=== PATIENT | male | born 1970 | race Native Hawaiian/Other Pacific Islander ===

== ENCOUNTER 2020-06-18 14:56 | Outpatient (CLI) | payer OTHER, BC, SELFPAY ==
--- NOTE | ~2020-06-18 | XR_ITS ---
EXAMINATION: XR knee LT 3V, XR knee RT 3V DATE: 06/18/2020 15:38 INDICATION: Rheumatoid arthritis and gout TECHNIQUE: 1. Weight bearing anteroposterior and Maradiaga and flexed lateral views of the left knee were obtain ed. 2. Weight bearing anteroposterior and Maradiaga and flexed lateral views of the right knee were obtai linda COMPARISON: None. FINDINGS: Alignment is normal at both knees. No fracture. No joint effusion/layering lipohemarthrosis. Joint s paces are relatively preserved but with tiny marginal osteophytes in the medial and lateral compartme nts of both knees consistent with minimal osteoarthritis. Mild osteoarthritis at the bilateral patell ofemoral compartments with mild joint space narrowing, left greater than right, small marginal osteop hytes along the bilateral patellae and suggestion of a possible central osteophyte along the right tr ochlear groove. Enthesophytes along the bilateral patellae, right anterior tibial tuberosity and tello g the syndesmotic insertions of the proximal bilateral tibial and femoral diaphyses. No cortical eros ions to suggest an inflammatory arthritis. Soft tissues are unremarkable. IMPRESSION: 1. Bilateral mild patellofemoral predominant tricompartmental osteoarthritis. Reviewed, dictated and finalized at location H. UTER SCIENCE TEACHER IMPRESSION: 1. Bilateral mild patellofemoral predominant tricompartmental osteoarthritis.
--- NOTE | ~2020-06-18 | XR_ITS ---
EXAMINATION: HAND-DAVE ARTHRITIS 3+VIEWS DATE: 06/18/2020 15:38 INDICATION: Gout and rheumatoid arthritis TECHNIQUE: Posteroanterior, lateral, and oblique views of the left and of the right hands as well as a ballcatchers view of both hands were obtained. COMPARISON: None. FINDINGS: Alignment is normal. 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 No other fractures ident ified. Polyarticular osteoarthritis with typical distribution in both hands, moderate severity at the left fifth proximal interphalangeal joint which may be secondary to prior trauma with small heteroto pic ossicle in the region of the ulnar collateral ligament. Mild osteoarthritis at the bilateral dist al radioulnar, bilateral first carpometacarpal and multiple bilateral interphalangeal joints. No eros ions or significant joint space narrowing inflammatory arthritis or specifically rheumatoid. IMPRESSION: 1. Generally mild polyarticular osteoarthritis at the bilateral hands and wrists with slightly more s evere moderate osteoarthritis at the left fifth proximal interphalangeal joint which may be secondary to prior trauma. 2. No erosions to suggest an inflammatory arthritis such as rheumatoid. 3. 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 Reviewed, dictated and finalized at location H. URCE MANAGEMENT PLANNER IMPRESSION: 1. Generally mild polyarticular osteoarthritis at the bilateral hands and wrist s with slightly more severe moderate osteoarthritis at the left fifth proximal interphalangeal joint which may be secondary to prior trauma. 2. No erosions to suggest an inflammatory arthritis such as rheumatoid. 3. 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
--- NOTE | ~2020-06-18 | XR_ITS ---
EXAMINATION: XR foot LT standing 2V, XR foot RT standing 2V DATE: 06/18/2020 15:39 INDICATION: Rheumatoid arthritis and gout. TECHNIQUE: 1. Standing dorsal plantar and lateral views of the right foot were obtained. 2. Standing dorsal plantar and lateral views of the left foot were obtained. COMPARISON: None. FINDINGS: Alignment is normal at both feet. Symmetric normal variant type II accessory os naviculare. No fractu res. Polyarticular osteoarthritis, moderate at the left and mild at the right first metatarsophalange al joints and mild at multiple additional bilateral tarsometatarsal and interphalangeal joints. Mild hypertrophic change at the medial aspect of the heads of the bilateral first metatarsals likely relat ed to bunions. There is prominent juxta articular erosion with sclerotic margins and overhanging olga ical margin at the lateral head of the left first metatarsal with appearance most consistent with gou t. No other erosions identified at either foot. Large bilateral Achilles calcaneal spurs. IMPRESSION: 1. Prominent erosion at the lateral head of the left first metatarsal with location, appearance and a bsence of other findings of inflammatory arthritis which would favor gout with differential including less likely rheumatoid arthritis or other inflammatory arthritis. 2. Moderate osteoarthritis at the left first metatarsophalangeal joint and mild patellar articular os teoarthritis at multiple additional joints in the bilateral mid and forefeet. Reviewed, dictated and finalized at location H. TICAL SCIENCE RESEARCH ASSISTANT IMPRESSION: 1. Prominent erosion at the lateral head of the left first metatarsal with loca tion, appearance and absence of other findings of inflammatory arthritis which would favor gout with differential including less likely rheumatoid arthritis o r other inflammatory arthritis. 2. Moderate osteoarthritis at the left first metatarsophalangeal joint and mild patellar articular osteoarthritis at multiple additional joints in the bilater al mid and forefeet.
== END 2020-06-18 14:57 | disposition home or self-care (01) ==
PROVIDERS: PCP Student in an Organized Health Care Education/Training Program; Visit Provider Internal Medicine
DX: M19.042 Primary osteoarthritis, left hand (principal); M19.041 Primary osteoarthritis, right hand; E55.9 Vitamin D deficiency, unspecified; M10.9 Gout, unspecified; M17.0 Bilateral primary osteoarthritis of knee; M84.43 Pathological fracture, ulna and radius; M19.072 Primary osteoarthritis, left ankle and foot; M19.071 Primary osteoarthritis, right ankle and foot
CPT/HCPCS: 73130; 73562; 73620

== ENCOUNTER → 2022-05-29 14:45 | Outpatient (CLI) | payer BC, SELFPAY ==
--- NOTE | ~2022-05-29 | CT_ITS ---
EXAMINATION: CT abdomen pelvis w con DATE: 05/29/2022 15:19 INDICATION: Chronic left lower quadrant abdominal pain, discomfort for 2 to 3 years TECHNIQUE: Computed tomography (CT) of the abdomen and pelvis was performed with 100 CC Omnipaque 350 intravenous contrast. Automated exposure control and iterative reconstruction technique were employe d. Exam dose: 1211.78 mGy-cm total exam DLP. COMPARISON: None. FINDINGS: The lung bases are clear. No pericardial or pleural effusion. The liver, gallbladder, bile ducts, pancreas, pancreatic duct, spleen, adrenal glands and kidneys salvador ear normal. Normal caliber of the abdominal aorta. No intraperitoneal or retroperitoneal or pelvic mass lesion or adenopathy or ascites. Normal appendix. No bowel obstruction, bowel wall thickening, pneumatosis or intraperitoneal free air . Mild diffuse thickening of the urinary bladder wall may be due to underdistention. The prostate gland is unremarkable. No suspicious osteolytic or osteoblastic lesions. IMPRESSION: No significant abnormality Reviewed, dictated and finalized at Location A. Reviewed, dictated and finalized at location A. IMPRESSION: No significant abnormality
[2022-05-29 15:06] LABS: Estimated Glomerular Filt Rate 54
== END ==
PROVIDERS: PCP Student in an Organized Health Care Education/Training Program; Visit Provider Student in an Organized Health Care Education/Training Program
DX: Z00.00 Encounter for general adult medical examination without abnormal findings (principal); R10.32 Left lower quadrant pain; G89.29 Other chronic pain
CPT/HCPCS: 74177; Q9967

== ENCOUNTER 2024-08-27 10:00 | Emergency (ER) | payer OTHER, BC, SELFPAY ==
--- NOTE | ~2024-08-27 | XR_ITS ---
XR chest 2V 08/27/2024 11:33 Indication: Upper respiratory infection and cough. Procedure: 2 view chest Comparison: 08/13/2014 Findings: There is a infiltrates of the right mid and lower lung. Heart size normal. Pacemaker leads are in expected position. No significant effusion, edema or pneumothorax. No acute osseous abnormalit y. Impression: 1: Subtle patchy right sided infiltrates which may represent atelectasis or developing pneumonia. Reviewed, dictated and finalized at location A. BLACKER Impression: 1: Subtle patchy right sided infiltrates which may represent atelectasis or dev eloping pneumonia.
[2024-08-27 10:05] VITALS: BP 146/97; PULSE 87; RESP 18; TEMP 36.7; O2SAT 95
--- OUTSIDE RECORDS SUMMARY | 2024-08-27 10:47 | XMS_ITS | Referral Summary ---
Author Organization [facility] Address [address] [place] [address] Care Team Providers Care Used Car Lot Attendant Name Role Phone Georgia Garcia MD Primary Care Provider Unavailabl e Source Comments [facility],non-owned Affiliates and Associated Physician Practices is amultiple site organization consisting of ambulatory clinics and hospital sitesin [place], [place], [place] and [place]. This disclosure is being madepursuant to the Care Everywhere program and may not contain all information available regarding this patient. Last updated 18.[facility] [employer] Social History Tobacco Use Types Packs/Day Years Used Date Smoking Tobacco: Never Assessed Sex and Gender Information Value Date Recorded Sex Assigned at Not on file Gender Identity Not on file Sexual Orientation Not on file Plan of Treatment Not on file Care Teams Used Car Lot Attendant Relationship Specialty Start Date End Date Georgia Garcia MD RETIRED PCP - General 02/15/10
--- OUTSIDE RECORDS SUMMARY | 2024-08-27 10:47 | XMS_ITS | Encounter Summary ---
Author Organization [facility] Address [facility] [facility] [place], [place] [id number] [place] [id number] Care Team Providers Care Tripe Scraper Name Role Phone Danilo Kemp DO Primary Care Provider + Reason for Visit * Reason Onset Date Comments Information 08/27/2024 Encounter Details Date Type Department Care Team (Late st Contact Info) Description 08/27/2024 Telephone [facility] Family & Internal Medicine [id number] [place] [id number] Danilo Kemp DO [facility] [place] [address] Information Social History Tobacco Use Types Packs/Day Years Used Date Smoking Tobacco: Never Passive Smoke Exposure: Never Smokeless Tobacco: Never Alcohol Use Standard Drinks/Week Comments Yes 10 (1 standard drink = 0.6 oz pu re alcohol) per week AUDIT-C Answer Date Recorded Frequency of Alcohol Consumption 2-3 times a wee k 04/08/2019 Average Number of Drinks Not on file 019 Frequency of Binge Drinking Not on file 03/30 PHQ-2 Answer Date Recorded Patient Health Questionnaire-2 Score 0 08/22/2024 Sex and Gender Information Value Date Recorded Sex Assigned at Male 08/22/2024 2:21 PM MACHINE BENDER Legal Sex Male 4:03 PM CDT Gender Identity Male 05/18/2022 11:46 AM CDT Sexual Orientation Not on file Occupation Industry Job Start Date Job End Date Not on file Not on file Not on file Not on file documented as of this encounter Progress Notes * Yuridia Mendoza - 08/27/2024 8:54 AM CST Patients called and stated that the patient has now developed a high pitched cough that is really bad. Wanted to know if we could test the patient for Whooping Cough. I was advised by the MA that he would need to go to the ER to make sure he does not have pneumonia and can also have a viral panel performed. Patients agreed and will take him to the ER. INE BENDER documented in this encounter Plan of Treatment Upcoming Encounters Date Type Department Care Team (Late st Contact Info) Description 09/18/2024 1:40 PM MACHINE BENDER Office Visit [facility] Multispecialty Care - [facility] [address] [place] [phone] Crystal Diamond, SHELLFISH MANAGER [address] [address] [place] [address] Harjit Lewis PA-C [address] [facility] [address] [place] [address] documented as of this encounter Visit Diagnoses Not on filedocumented in this encounter Additional Health Concerns Infection Onset Date Last Indicated Resolved Time Influenza - Seasonal 08/22/2024 08/22/2024 Assessment Noted Time PHQ-9 Depression Total Score: 0 04/23/20 20 11:17 AM CDT documented as of this encounter Care Teams Tripe Scraper Relationship Specialty Start Date End Date Danilo Kemp DO [address] [place] [address] PCP - General FAMILY PRACTICE 03/25/19 documented as of this encounter
--- OUTSIDE RECORDS SUMMARY | 2024-08-27 10:47 | XMS_ITS | Clinical Summary ---
Author Organization [facility] Address [address] [place] [address] [place] [address] Care Team Providers Care Core Java Engineer Name Role Phone Danilo Kemp DO Primary Care Provider + Allergies No known active allergies Medications apixaban (ELIQUIS) 5 MG tablet Take 1 tablet (5 mg total) by mouth 2 (two) times daily. 60 tablet 3 02/17/20 23 Active dapagliflozin (FARXIGA) 10 MG tablet Take 1 tablet (10 mg total) by mouth daily. 05/28/20 23 Active sacubitril-vals noemi (ENTRESTO) 24-26 MG tablet Take 1 tablet by mouth 2 (two) times daily. 07/19/20 23 Active vitamin D3 (CHOLECALCIFERO L) 1.25 mg capsuleIndicati ons:Vitamin D deficiency take 1 capsule by mouth once a week 12 capsule 01/17/20 24 Active colchicine 0.6 MG tabletIndicatio ns:Articular gout Take 1 tablet (0.6 mg total) by mouth daily. 90 tablet 1 02/27/20 24 Active pantoprazole EC (PROTONIX) 20 MG tabletIndicatio ns:Other gastritis without hemorrhage, unspecified chronicity TAKE 1 TABLET BY MOUTH EVERY DAY 90 tablet 07/31/19 25 Active metoprolol succinate ER (TOPROL-XL) 50 MG 24 hr tablet Take 2 tablets (100 mg total) by mouth daily. 05/26/20 24 2024 Active allopurinol (ZYLOPRIM) 300 MG tablet Take 2 tablets (600 mg total) by mouth daily. 03/13/20 24 2024 Active sildenafil (VIAGRA) 100 MG tablet Take 1 tablet (100 mg total) by mouth daily as needed for Erectile Dysfunction. 10/15/19 24 Active predniSONE (DELTASONE) 20 MG tabletIndicatio ns:Influenza A Take 3 tablets for three days, then take 2 tablets for three days, then take 1 tablet for three days 18 tablet 08/22/19 25 Active oseltamivir (TAMIFLU) 75 MG capsuleIndicati ons:Influenza A Take 1 capsule (75 mg total) by mouth 2 (two) times daily for 5 days. 10 capsule 08/22/19 25 2024 Active albuterol sulfate HFA (PROAIR HFA) 108 (90 Base) MCG/ACT inhalerIndicati ons:Influenza A,Acute cough,Wheezing Inhale 2 puffs into the lungs every 6 (six) hours as needed for Wheezing. 18 g 08/25/19 25 Active liraglutide, Weight Management, (SAXENDA) 18 MG/3ML injectionIndica tions:BMI 39.0-39.9,adult ,Persistent atrial fibrillation ([facility] HHS/HCC),YUDY (obstructive sleep apnea),Chronic HFrEF (heart failure with reduced ejection fraction) ([facility] HHS/HCC) Start With: 0.6 mg (0.1 mL) SC once daily x7 days, then 1.2 mg (0.2 mL) SC once daily x7 days, then 1.8 mg (0.3 mL) SC once daily x 7 days, then 2.4 mg (0.4 mL) SC once daily x 7 days, then 3 mg (0.5 mL) SC once daily. 5 pen. 2 10/08/19 24 2024 Discontinued allopurinol (ZYLOPRIM) 300 MG tabletIndicatio ns:Articular gout Take 1 tablet (300 mg total) by mouth daily. 90 tablet 02/27/20 24 2024 Discontinued methylPREDNISol one, BOZENA, (MEDROL DOSEPAK) 4 MG tabletIndicatio ns:Articular gout 6 TABLETS ON DAY ONE, 5 TABLETS DAY TWO, 4 TABLETS DAY THREE, 3 TABLETS DAY FOUR, 2 TABLETS DAY FIVE, AND 1 TABLET DAY SIX 1 each 02/28/20 24 2024 Discontinued metoprolol succinate ER (TOPROL-XL) 25 MG 24 hr tabletIndicatio ns:Benign hypertension TAKE 1 TABLET BY MOUTH DAILY (CALL TO MAKE AN APPOINTMENT) 90 tablet 03/27/20 24 2024 Discontinued(F ormulary change) pantoprazole EC (PROTONIX) 20 MG tabletIndicatio ns:Other gastritis without hemorrhage, unspecified chronicity Take 1 tablet (20 mg total) by mouth daily. 30 tablet 2 05/05/20 24 2024 Discontinued hydroxychloroqu ine (PLAQUENIL) 200 MG tabletIndicatio ns:Articular gout take 1 tablet by mouth daily 90 tablet 05/19/20 24 2024 Discontinued allopurinol (ZYLOPRIM) 100 MG tabletIndicatio ns:Articular gout TAKE 1 TABLET BY MOUTH DAILY WITH 300 MG TABLET TO EQUAL 400 MG DAILY DOSE 90 tablet 05/21/20 24 2024 Discontinued(F ormulary change) allopurinol (ZYLOPRIM) 300 MG tabletIndicatio ns:Articular gout TAKE 1 TABLET (300 MG TOTAL) BY MOUTH DAILY. TAKE WITH 100 MG TABLET TO EQUAL 400 MG ONCE DAILY. APPOINTMENT NEEDED PLEASE CALL OFFICE. 30 tablet 08/13/19 25 2024 Discontinued(F ormulary change) albuterol sulfate HFA 108 (90 Base) MCG/ACT inhalerIndicati ons:Influenza A,Wheezing Inhale 2 puffs into the lungs every 6 (six) hours as needed. 18 g 08/22/19 25 2024 Discontinued(C ost of medication) Active Problems Problem Noted Date Diagnosed Date Esophagitis 04/27/2024 Gastritis 04/27/2024 Idiopathic hypersomnia with long sleep time 11/2023 Callus of foot 10/05/2022 Chronic fatigue 06/18/2020 H/O cardiomyopathy 06/18/2020 Left lower quadrant abdominal pain 05/13/2020 Overview (05/13/2020): Added automatically from request for surgery [id number] Abdominal fullness 09/06/2018 Impotence of organic origin 09/01/2016 Overview (11/18/2020): Overview: Erectile dysfunction, unspecified erectile dysfunction type Erectile dysfunction, unspecified erectile dysfunction type Cardiomyopathy ([facility]) 09/17/2015 Overview (11/18/2020): Overview: Cardiomyopathy Cardiomyopathy Obesity with body mass index 30 or greater 09/17 Overview (11/18/2020): Overview: Obesity, Class II, BMI 35.0-39.9, with comorbidity (see actual BMI) Overview: Obesity (BMI 35.0-39.9 without comorbidity) Obesity, Class II, BMI 35.0-39.9, with comorbidity (see actual BMI) Obesity (BMI 35.0-39.9 without comorbidity) Dizziness 09/17/2015 Overview (11/18/2020): Dizziness Articular gout 07/21/2015 Overview (11/18/2020): Overview: Gouty arthritis Gouty arthritis Chronic HFrEF (heart failure with reduced ejection fraction) ([facility]) 07/21/2015 Overview (11/18/2020): Overview: Chronic systolic heart failure Chronic systolic heart failure Obstructive sleep apnea syndrome 07/21/2015 Overview (11/18/2020): Overview: YUDY on CPAP YUDY on CPAP Unknown and unspecified causes of morbidity 03/30 Overview (11/18/2020): Chronic anticoagulation Benign hypertension 02/04/2014 Overview (11/18/2020): Overview: HTN (hypertension), benign Overview: HTN (hypertension) HTN (hypertension), benign HTN (hypertension) Prediabetes 02/04/2014 Overview (03/25/2019): Overview: DM (diabetes mellitus) Persistent atrial fibrillation ([facility]) 02/04/2014 Overview (11/18/2020): Overview: Paroxysmal atrial fibrillation Overview: Persistent atrial fibrillation Overview: Atrial fibrillation Paroxysmal atrial fibrillation Persistent atrial fibrillation Atrial fibrillation Shortness of breath 02/04/2014 Overview (11/18/2020): Dyspnea Resolved Problems Problem Noted Date Diagnosed Date Resolved Date Implantable cardioverter-def ibrillator (ICD) in situ 06/03/2024 08/22/2024 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 10/21/19 23 Overview (11/18/2020): Amiodarone toxicity, undetermined intent, initial encounter Encounters Date Type Department Care Team Description 08/27/2024 Telephone [facility] [address] [phone] Danilo Kemp, DO Information 08/22/2024 2:20 PM [employer] NURSE Office Visit [facility] [address] [phone] Danilo Kemp, DO URI (Chills, cough, body aches, and wheezing for 5 days. ) 08/22/2024 Telephone [facility] [address] [address] Danilo Kemp, DO Prior Authorization (Albuterol sulfate HFA 108 (90 base) mcg/act inhaler) 08/22/2024 Travel 06/29/2024 Scan [facility] Scanned, [facility] from Last 3 Months Family History Medical History Relation Comments gout Brother Gout Father Hypertension Father Hypertension Mother Relation Status Comments Brother Father Maternal Grandfather Maternal Grandmother Mother Paternal Grandfather Paternal Grandmother Social History Tobacco Use Types Packs/Day Years [...] Sex Assigned at Male 08/22/2024 2:21 PM [employer] NURSE Legal Sex Male 4:03 PM CDT Gender Identity Male 05/18/2022 11:46 AM CDT Sexual Orientation Not on file Occupation Industry Job Start Date Job End Date Not on file Not on file Not on file Not on file Last Filed Vital Signs Vital Sign Reading Time Taken Comments Blood Pressure 112/80 08/22/2024 2:22 PM [employer] NURSE Pulse 87 08/22/2024 2:22 PM [employer] NURSE Temperature 36.1 ??C (97 ??F) 08/22/2024 2:22 PM [employer] NURSE Respiratory Rate 18 08/22/2024 2:22 PM [employer] NURSE Oxygen Saturation 96% 08/22/2024 2:22 PM [employer] NURSE Inhaled Oxygen Concentration - - Weight 139.1 kg (306 lb 11.2 oz) 08/22/2024 2:22 PM [employer] NURSE Height 190.5 cm (6' 3 ) 08/22/2024 2:22 PM [employer] NURSE Body Mass Index 38.33 08/22/2024 2:22 PM [employer] NURSE Plan of Treatment Upcoming Encounters Date Type Department Care Team (Late st Contact Info) Description 09/18/2024 1:40 PM [facility] NURSE Office Visit [facility] - [address] [place] [address] Crystal Diamond, CYCLING INSTRUCTOR [address] [place] [address] Harjit Lewis, PAAdiC [address] [place] [address] Health Maintenance Due Date Last Done Comments Annual Physical 12/24/1975 Hepatitis B Vaccines (1 of 3 - 19+ 3-dose series) 09/22/2024 Postponed from 11/28 (Future Appointment) DTaP, Tdap and Td Vaccines ( 1 - Tdap) 10/04/2024 Postponed from 12/23 (Patient Refused) Pneumococcal Vaccine: Pediatrics (0 to 5 Years) and At-Risk Patients (6 to 64 Years) (1 of 2 - PCV) 08/21/2025 Postponed from (Patient Refused) COVID-19 Vaccine (4 - 2023-2 5 season) 2025 10/17/2021, 11/19/2020, 10/26/2020 Postponed from 03/30/2024 (Patient Refused) Influenza Adult (#1) 2025 Postpon ed from 04/29/2024 (Patient Refused) Zoster Vaccines (1 of 2) 08/22/2025 Pos tponed from 2022 (Patient Refused) Colorectal Cancer Screening Colonoscopy (10 Years) 07/17/2029 07/17/2019, 07/17/2019 Hepatitis C Completed 05/23/2022 PHQ-2 (Physician [place]) Completed 08/22/2024 Meningococcal B Vaccine Aged Out No l onger eligible based on patient's age to complete this topic Meningococcal Vaccine Aged Out No roula vignesh eligible based on patient's age to complete this topic RSV Immunizations Under 20 Months Aged Out No longer eligible b ased on patient's age to complete this topic Procedures Procedure Name Priority Date/Time Associated Diagnosis Comments XR CHEST PA+LAT STAT 08/22/2024 3:10 PM [employer] NURSE Influenza A CORONAVIRUS (COVID-19) INFLUENZA A & B ANTIGEN IA PANEL Routine 08/22/2024 Acute cough HEPATITIS C ANTIBODY W/RFX TO HCV RNA Routine 05/23/2022 3:32 PM CDT Need for hepatitis C screening test Annual physical exam COLONOSCOPY Routine 07/17/2019 10:51 AM [employer] NURSE from Last 3 Months or Most Recently Relevant to Health Maintenance Results * XR CHEST PA+LAT (08/22/2024 3:10 PM [employer] NURSE) Anatomical Region Laterality Modality Chest Radiographic Carmen ging 08/22/2024 2:58 PM [employer] NURSE Narrative 08/22/2024 3:15 PM [employer] NURSE [facility] - [address] ??[id number] EXAM: XR CHEST PA+LAT INDICATION: Shortness of breath with influenza A. TECHNIQUE: PA and lateral views of the chest were obtained. COMPARISON EXAM: Portable chest from 06/25/2019. ??CT chest from 12/29/2022. FINDINGS: There is no consolidation or effusion. ??Mild bilateral interstitial prominence from probable chronic bronchitis. ??Size and pulmonary vascular caliber is normal. ??There is been placement of a dual lead cardiac pacemaking device in satisfactory position. ??Skeletal structures are intact. IMPRESSION: NO ACUTE CONSOLIDATION OR EFFUSION. ??PROBABLE SEQUELA OF CHRONIC BRONCHITIS. Referred By: ?? Interpreted By: Juan Luis Sheikh MD, 08/22/2024 3:11 PM Procedure Note Juan Luis Sheikh MD - 08/22/2024 [facility] - [address] [address] EXAM: XR CHEST PA+LAT INDICATION: Shortness of breath with influenza A. TECHNIQUE: PA and lateral views of the chest were obtained. COMPARISON EXAM: Portable chest from 06/25/2019. CT chest from12/29/2022. FINDINGS: There is no consolidation or effusion. Mild bilateralinterstitial prominence from probable chronic bronchitis. Size andpulmonary vascular caliber is normal. There is been placement of a duallead cardiac pacemaking device in satisfactory position. Skeletalstructures are intact. IMPRESSION: NO ACUTE CONSOLIDATION OR EFFUSION. PROBABLE SEQUELA OFCHRONIC BRONCHITIS. Referred By: Interpreted By: Juan Luis Sheikh MD, 08/22/2024 3:11 PM Danilo Navarro Lucjamal DO GENERAL IMAGING Final Re sult * (ABNORMAL) CORONAVIRUS (COVID-19) INFLUENZA A & B ANTIGEN IA PANEL (08/22/2024) [facility] CORONAVIRUS ANTIGEN IA NEGATIVE NEGATIVE [facility] INFLUENZA A POSITIVE(A) NEGATIVE [facility] INFLUENZA B NEGATIVE NEGATIVE [facility] Internal Control: VALID VALID [facility] NASAL STRUCTURE / Unknown 08/22/2024 Danilo Kemp DO MICROBIOLOGY - GENERAL O RDERABLES Final Result [facility] [address] [place] [address], * HEPATITIS C ANTIBODY W/RFX TO HCV RNA ([facility] ONLY) (05/23/2022 3:32 PM CDT) Pathologist [facility] HEPATITIS C AB <0.1 0.0 - 0.9 s/co ratio [facility] 1 INTERPRETATION Comment [facility] 1 Comment: Negative Not infected with HCV, unless recent infection is suspected or other evidence exists to indicate HCV infection. 05/23/2022 3:32 PM CDT 05/23/2022 Narrative [facility] - 05/24/2022 12:09 PM CDT Performed at: ??01 - [facility] [address], [place], [place] ??[id number] Events Intern: Matthew Urias PhD, Phone: ??[phone] Danilo Kemp DO LABORATORY Final Re sult [facility] [address] [place] [address] [facility] 1 from Last 3 Months or Most Recently Relevant to Health Maintenance Additional Health Concerns Infection Onset Date Last Indicated Influenza - Seasonal 08/22/2024 08/22/2024 Insurance [facility] Care Teams Core Java Engineer Relationship Specialty Start Date End Date Danilo Kemp DO [address] [place] [id number] PCP - General FAMILY PRACTICE 03/25/19
--- OUTSIDE RECORDS SUMMARY | 2024-08-27 10:47 | XMS_ITS | Referral Summary ---
Author Organization [facility] Address [address] [place] [address] Care Team Providers Care Yield Engineer Name Role Phone Danilo Kemp Primary Care Provide r Onel Alvarez MD Unavailable [phone] Encounters Date Type Department Care Team Description 07/11/2024 9:15 AM DRAWSTRING KNOTTER Office Visit [facility] Sleep Medicine at [address] [place] [phone] Halle Jackson MD Obstructive sleep apnea (Primary Dx); Hypersomnia; Obesity, unspecified class, unspecified obesity type, unspecified whether serious comorbidity present 07/10/2024 Telephone [facility] Rheumatology [address] [place] [address] Medicine 5th [place] [address] [place] [address] Estela Frye RMA Test Results (Labs) 07/09/2024 8:20 PM DRAWSTRING KNOTTER - 07/09/2024 11:59 PM DRAWSTRING KNOTTER Hospital Encounter [facility] [address] [place] [address] Idiopathic chronic gout of multiple sites with tophus Discharge Disposition: Discharge to home or self care 07/09/2024 3:40 PM DRAWSTRING KNOTTER Lab [facility] Infectious Diseases [address] [place] [address] [address] [place] [address] 07/09/2024 3:00 PM DRAWSTRING KNOTTER Office Visit [facility] Rheumatology [address] [place] [address] [address] [place] [address] Beatrice Almaraz MD Idiopathic chronic gout of multiple sites with tophus (Primary Dx); Arthralgia of both hands 06/02/2024 1:00 PM DRAWSTRING KNOTTER Office Visit [facility] Cardiology [address] [facility] [address] [place] [address] Onel Alvarez MD Chronic HFrEF (heart failure with reduced ejection fraction) (CMS/HCC) (HCC) (Primary Dx); Longstanding persistent atrial fibrillation (CMS/HCC) (HCC); Cardiomyopathy, unspecified type (HCC) 05/28/2024 3:15 PM CDT [facility] [address] [place] [phone] Anna Christianson NP Longstanding persistent atrial fibrillation (CMS/HCC) (HCC) (Primary Dx); Automatic implantable cardiac defibrillator in situ; Anticoagulation management encounter 05/28/2024 3:00 PM CDT Ancillary Procedure [facility] [address] [place] [phone] Automatic implantable cardiac defibrillator in situ (Primary Dx); Nonischemic cardiomyopathy (CMS/HCC) (HCC) from Last 3 Months Allergies No known active allergies Medications ergocalciferol (VITAMIN D) 50,000 unit capsule Take 1 capsule (50,000 Units total) by mouth once a week 1 Active apixaban (ELIQUIS) 5 mg tablet Take 1 tablet (5 mg total) by mouth 2 (two) times a day 180 tablet 3 3 Active Additional Information Patient taking differently:5 mg oral 2 times daily,Waiting to take for 3-4 days from having surgery on 03/07/24, Reported on 07/11/2024 dapagliflozin propanediol (FARXIGA) 10 mg tablet Take 1 tablet (10 mg total) by mouth daily 90 tablet 3 3 Active spironolactone (ALDACTONE) 25 mg tablet TAKE 1 TABLET (25 MG TOTAL) BY MOUTH DAILY. 90 tablet 3 4 025 Active allopurinoL (ZYLOPRIM) 300 mg tabletIndicatio ns:Idiopathic chronic gout of multiple sites with tophus Take 2 tablets (600 mg total) by mouth daily 180 tablet 1 4 025 Active colchicine (COLCRYS) 0.6 mg tabletIndicatio ns:prevention of acute gout attack Take 1 tablet (0.6 mg total) by mouth daily 90 tablet 3 4 025 Active metoprolol XL (TOPROL-XL) 50 mg extended release tablet Take 2 tablets (100 mg total) by mouth daily 90 tablet 3 4 025 Active sacubitriL-vals noemi (ENTRESTO) 24-26 mg tabletIndicatio ns:chronic heart failure Take 1 tablet by mouth 2 (two) times a day 4 Active sildenafiL (VIAGRA) 100 mg tablet TAKE 1 TABLET BY MOUTH EVERY DAY NEEDED FOR ERECTILE DYSFUNCTION 8 tablet 4 4 Active methylPREDNISol one (MEDROL DOSEPACK) 4 mg DosepackIndicat ions:Gout TAKE 6 TABLETS ON DAY 1 DIRECTED ON PACKAGE AND DECREASE BY 1 TAB EACH DAY FOR A TOTAL OF 6 DAYS 1 packet 5 Active methylPREDNISol one (MEDROL DOSEPACK) 4 mg DosepackIndicat ions:Gout TAKE 6 TABLETS ON DAY 1 DIRECTED ON PACKAGE AND DECREASE BY 1 TAB EACH DAY FOR A TOTAL OF 6 DAYS 1 packet 4 025 Discontin ued(Reord er) Active Problems Problem Noted Date Diagnosed Date Anticoagulation management encounter 06/03/2024 Assessment & Plan (06/03/2024 4:15 PM DRAWSTRING KNOTTER): - remains compliant on apixaban -denies any issues with bruising or bleeding -recommend continued therapy for thromboprophylaxis Automatic implantable cardiac defibrillator in s itu 06/03/2024 Assessment & Plan (06/03/2024 4:16 PM DRAWSTRING KNOTTER): - status post dual-chamber ICD placement with Dr. Minaya - received ICD therapy for atrial fibrillation with RVR -Device interrogation today shows 7.1% RV pacing. 100% atrial arrhythmia burden. Ninety-one episodes of atrial fibrillation with RVR. - The patient's device was interrogated today and found to be functioning appropriately. No significant programming changes were made at this time. The patient will continue to be followed through the [facility] remotely and with in office device interrogations as needed. 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 Overview (12/22/2016): Amiodarone toxicity, undetermined intent, initial encounter Impotence of organic origin 09/01/2016 Overview (11/02/2016): Erectile dysfunction, unspecified erectile dysfunction type Obesity with body mass index 30 or greater 03/24 Overview (11/02/2016): Obesity (BMI 35.0-39.9 without comorbidity) Drug intoxication (CMS/HCC) 03/24/2016 Overview (11/02/2016): At risk for amiodarone toxicity with penitentiary use Obesity due to excess calories with serious tamra rbidity 09/17/2015 Overview (11/02/2016): Obesity, Class II, BMI 35.0-39.9, with comorbidity (see actual BMI) Cardiomyopathy 09/17/2015 Overview (11/02/2016): Cardiomyopathy Assessment & Plan (02/12/2024 2:02 PM CDT): Persistent, severe LV systolic dysfunction despite good compliance with GDMT. Recommend ICD implantation for primary prevention of SCD. The benefits, risks, and alternatives of a transvenous implantable cardioverter-defibrillator (ICD) implant were reviewed with the patient using the principles of shared decision-making and concepts found within the [place] [employer] ICD CardioSmart Decision Aid. Specific procedural risks discussed included, but were not limited to: vascular injury, bleeding, pneumothorax, and cardiac perforation/tamponade. Long-term risks discussed included, but were not limited to: device/lead failure and/or recall, lead dislodgement with need for subsequent revision, inappropriate ICD discharges, and infection necessitating a system extraction. Patient specific risk factors which may increase procedural risks include: severe cardiomyopathy. The patient demonstrated a clear understanding of these issues during our discussion. All questions were answered. --ICD implantation w/anesthesia (Dixon) Dizziness 09/17/2015 Overview (11/02/2016): Dizziness Benign hypertension 07/21/2015 Overview (11/02/2016): HTN (hypertension), benign Articular gout 07/21/2015 Overview (11/02/2016): Gouty arthritis Chronic HFrEF (heart failure with reduced ejection fraction) ([facility]) 07/21/2015 Overview (11/02/2016): Chronic systolic heart failure Obstructive sleep apnea syndrome 07/21/2015 Overview (11/02/2016): YUDY on CPAP Longstanding persistent atrial fibrillation ([facility]) 07/21/2015 Overview (11/02/2016): Persistent atrial fibrillation Assessment & Plan (06/03/2024 4:15 PM DRAWSTRING KNOTTER): - minimally symptomatic persistent atrial fibrillation with rapid ventricular rates at times - remains compliant on metoprolol and apixaban - metoprolol increased to 100 mg b.I.d. - recently had 2 episodes of RVR, one he received an ICD shock from - EKG today demonstrates atrial fibrillation with controlled rate - discussed case with Dr. Minaya - we will increase patient's metoprolol to 100 mg b.I.d. today and obtain a remote transmission in 1 week to re-evaluate his rates - if rates remain elevated in atrial fibrillation, we will initiate the patient on amiodarone and scheduled cardioversion if he does not convert after 1 week to see if we can restore sinus rhythm - could possibly consider radiofrequency catheter ablation if he does respond to amiodarone and cardioversion - we will have to wait at least 6 months for his RV lead to mature, before we can pursue ablation - follow up in 6 months for a 12 lead EKG, device interrogation, and clinic visit Assessment & Plan (02/12/2024 2:00 PM CDT): Minimally symptomatic. Ongoing AF, unabated for many years. Sinus rhythm maintenance with catheter ablation would be the favored approach in this patient with NICM, but likelihood of achieving durable AF suppression at this point with such prolonged LSPAF is low. For now will continue with rate control approach. [id number] = 2 (htn, CHF) --Continue apixaban 5 mg BID --Continue metoprolol XL 50 mg daily High risk drug monitoring status 04/15/2014 Overview (11/02/2016): Chronic anticoagulation Atrial fibrillation ([facility]) 02/04/2014 Overview (11/02/2016): Atrial fibrillation Hypertension 02/04/2014 Overview (11/02/2016): HTN (hypertension) Shortness of breath 02/04/2014 Overview (11/02/2016): Dyspnea Resolved Problems Problem Noted Date Diagnosed Date Resolved Date Paroxysmal atrial fibrillation ([facility]) 09/17/2015 02/12/2024 Overview (11/02/2016): Paroxysmal atrial fibrillation Diabetes mellitus 02/04/2014 06/18/2020 Overview (11/02/2016): DM (diabetes mellitus) Immunizations Name Administration Dates Next Due Pfizer SARS-CoV-2 Monovalent Vaccination (12+ Yrs) PURPLE 10/26/2020 Social History Tobacco Use Types Packs/Day Years Used Date Smoking Tobacco: Never Smokeless Tobacco: Never Tobacco Cessation:Counseling Given: Not Answered Alcohol Use Standard Drinks/Week Comments No 0 (1 standard drink = 0.6 oz pur e alcohol) AUDIT-C Answer Date Recorded Q1: How often do you have a drink containing alcohol? 4 or more times a week 05/03/2023 Q2: How many drinks containi ng alcohol do you have on a typical day when you are drinking? 3 or 4 Frequency of Binge Drinking Not on file 11/2022 Personal Safety Answer Date Recorded Have you ever been in or are you currently in a harmful physical or emotional relationship or is someone making you feel afraid or unsafe? Denies 03/07/2024 Sex and Gender Information Value Date Recorded Sex Assigned at Not on file Legal Sex Male 9:29 PM DRAWSTRING KNOTTER Gender Identity Male 02/11/2024 6:45 PM CDT Sexual Orientation Not on file Occupation Industry Job Start Date Job End Date Not on file Not on file Not on file Not on file Last Filed Vital Signs Vital Sign Reading Time Taken Comments Blood Pressure 104/71 07/11/2024 9:08 AM DRAWSTRING KNOTTER Pulse 67 07/11/2024 9:08 AM DRAWSTRING KNOTTER Temperature 36.1 ??C (97 ??F) 07/09/2024 2:48 PM DRAWSTRING KNOTTER Respiratory Rate 18 11/02/2023 10:0 5 AM CDT Oxygen Saturation 95% 07/11/2024 9:08 AM DRAWSTRING KNOTTER Inhaled Oxygen Concentration - - Weight 138.3 kg (304 lb 12.8 oz) 07/11/2024 9:08 AM DRAWSTRING KNOTTER Height 190.5 cm (6' 3 ) 07/11/2024 9:08 AM DRAWSTRING KNOTTER Body Mass Index 38.1 07/11/2024 9:08 AM DRAWSTRING KNOTTER Plan of Treatment Not on file Medical Devices Implanted Type Area Stitcher Operator Device Identifier Shelf Expiration Date Model / Serial / Lot Dixon Vascular Defib Cardiac [id number] Lambert Implantable 2 Chamber [id number] - [id number] - [id number] Implanted:Qty: 1 on 03/07/2024 by Edwin Minaya III, MD at [facility] ICD Dixon [employer] [id number] 04/28/2024 C [id number] / [id number] / [employer] Durata 6.8fr 65cm True Bipolar Active Fixation Extendable 1 Coil 7122q/65 - [id number] - [id number] Implanted:Qty: 1 on 03/07/2024 by Edwin Minaya III, MD at [facility] Lead [employer] [id number] 10/27/2026 7122Q/65 / [id number] / [employer] Active Fixation Steroid Eluting Latex Free Sterile Right Atrium Ventricle Ultipace 52cm [id number]/52 - [id number] - [id number] Implanted:Qty: 1 on 03/07/2024 by Edwin Minaya III, MD at [facility] Lead [employer] [id number] 08/29/2026 L [id number]/52 / [id number] / Procedures Procedure Name Priority Date/Time Associated Diagnosis Comments EGFR Routine 07/09/2024 3:00 PM DRAWSTRING KNOTTER Idiopathic chronic gout of multiple sites with tophus URIC ACID Routine 07/09/2024 3:00 PM DRAWSTRING KNOTTER Idiopathic chronic gout of multiple sites with tophus BASIC METABOLIC PANEL Routine 07/09/2024 3:00 PM DRAWSTRING KNOTTER Idiopathic chronic gout of multiple sites with tophus ECG 12-LEAD Routine 05/28/2024 3:10 PM CDT Longstanding persistent atrial fibrillation (CMS/HCC) (HCC) DEVICE CHECK - IN OFFICE Routine 05/28/2024 2:53 PM CDT Nonischemic cardiomyopathy (CMS/HCC) (HCC) LIPID PANEL Routine 10/05/2023 from Last 3 Months or Most Recently Relevant to Health Maintenance Results * (ABNORMAL) eGFR (07/09/2024 3:00 PM DRAWSTRING KNOTTER) [facility] eGFR 58(L) >=60 mL/min/1. 73 m2 Comment: Interpretive Data Reference Interval Normal ?>/= 90 mL/min/1.73m2 Mildly decreased* ? 60 - 89 mL/min/1.73m2 Mildly to moderately decreased ?45 - 59 mL/min/1.73m2 Moderately to severely decreased ??30 - 44 mL/min/1.73m2 Severely decreased ?15 - 29 mL/min/1.73m2 Kidney Failure ?< 15 ??mL/min/1.73m2 *Relative to young adult level Estimated glomerular filtration rate is determined by the 2020 CKD-EPI equation recommended by the National Kidney Foundation (A Unifying Approach to GFR Estimation: Recommendations of the NKF-ASK Task Force on Reassessing the Inclusion of Race in Diagnosing Kidney Disease, JASN 2020). The CKD-EPI equation should not be used for patients with unstable renal function and has not been validated in children and those over 70. Current interpretive data was last reviewed 2021. Blood 07/09/2024 3:00 PM DRAWSTRING KNOTTER 07/09/2024 9:12 PM DRAWSTRING KNOTTER Beatrice Almaraz MD LAB BLOOD ORDERABLES Final Result Performing Organization Address [facility] Co de Phone Number DIONISIO [address] [facility] [place] [address] * Uric acid (07/09/2024 3:00 PM DRAWSTRING KNOTTER) Uric acid 5.7 3.0 - 8.0 mg/dL Blood 07/09/2024 3:00 PM DRAWSTRING KNOTTER 07/09/2024 8:51 PM DRAWSTRING KNOTTER Beatrice Almaraz MD LAB BLOOD ORDERABLES Final Result Performing Organization Address City/[facility]/[place] [address] [address] [facility] [place] [address] * (ABNORMAL) Basic metabolic panel (07/09/2024 3:00 PM DRAWSTRING KNOTTER) Sodium 140 135 - 145 mmol/L Potassium, pl 4.3 3.3 - 4.9 mmol/L [facility] Chloride 100 97 - 110 mmol/L [facility] CO2 27 22 - 32 mmol/L [facility] Anion gap 13 2 - 15 mmol/L [facility] BUN 21 6 - 25 mg/dL [facility] Creatinine 1.45(H) 0.80 - 1.30 mg/dL [facility] Glucose 103 70 - 199 mg/dL [facility] Comment: Interpretive Data Fasting glucose >/= 126 mg/dl is diagnostic for diabetes. ?? Fasting is defined as no caloric intake for at least 8 hours. Fasting glucose between 100 mg/dl to 125 mg/dl is diagnostic of prediabetes. In a patient with classic symptoms of hyperglycemia or hyperglycemic crisis, a random glucose >/= 200 mg/dl is diagnostic for diabetes. In the absence of unequivocal hyperglycemia, results should be confirmed by repeat testing. The classification and Diagnosis of Diabetes Diabetes Care 2021; 46: S19-S40. Current interpretive data was last revised 2022. Calcium 9.6 8.5 - 10.3 mg/dL [facility] Blood 07/09/2024 3:00 PM DRAWSTRING KNOTTER 07/09/2024 8:51 PM DRAWSTRING KNOTTER Beatrice Almaraz MD LAB BLOOD ORDERABLES Final Result D[facility] [address] [facility] Department [place] [address] * ECG 12 lead (05/28/2024 3:10 PM CDT) Anna Christianson NP ECG ORDERABLES Final Result * DEVICE CHECK - IN OFFICE (05/28/2024 2:53 PM CDT) Anatomical Region Laterality Modality Other Narrative 06/02/2024 3:53 PM DRAWSTRING KNOTTER Table formatting from the original result was not included. ICD CHECK (IN OFFICE) Patient ID: Lázaro Sesay is a 53 y.o. male. This patient received a Dixon ICD. ??They had a routine in office device interrogation on 05/28/24 Device implant indications: ??Nonischemic cardiomyopathy ?? Interrogation of the patient's device demonstrates the following: Presenting EGM: ??AFib with RV sense @ 105 bpm Underlying Rhythm: ??AFib with RV sense in the 100s Original Device Settings Right Ventricle Sensitivity (mV) Auto mV Pacing Outputs 2.0 V @ 0.5 ms ?? Testing Measurements Right Ventricle Sensitivity (mV) 11.7 mV Impedence (Ohms) 510 ohms High Voltage Impedence 73 ohms Pace Threshold 0.5 V @ .50 ms Pacing % 7.1 % Battery Status: ??8.3 years to KSENIA Episodes last 90 days/Comments: AF [place] 100% 91 stored ventricular events episodes classified as nonsustained and SVTs ventricular rates greater than 170s all reviewed EGM show episodes of AFib with RVR with high ventricular rates. Patient had 4 treated episodes occurring on 05/24/2024 3 of the episodes were treated with ATP only another episode at 2:25 p.m. was treated with ATP x1 with ventricular rates remaining above 220 beats per minute receiving a 36 joule shock which momentarily converted the patient out of the AFib patient is subsequently went right back into atrial fibrillation a few minutes following. NORMAL DEVICE FUNCTION PROGRAMMED MEDICATIONS: Anti-coagulant(s): ??Eliquis 5 mg twice daily Anti-arrhythmic(s): ??Toprol-XL 100 mg PLAN: 1) normal Dixon ICD evaluation. 2) Dixon remote transmission scheduled in 3 months. 3) Programming appropriate for device measurements Marion Decker RN Edwin Minaya III, MD [facility] PROCEDURES Final Result * (ABNORMAL) Lipid panel (10/05/2023) SCRIBED Cholesterol, Total 208(A) L - 200 EXTERNAL LAB SCRIBED HDL 65 L - H EXTERNAL LAB SCRIBED LDL 122(A) L - 100 EXTERNAL LAB SCRIBED Triglycerides 106 L - H EXTERNAL LAB Blood 10/05/2023 Historical Provider LAB BLOOD ORDERABLES Rosanne patricio Result EXTERNAL LAB from Last 3 Months or Most Recently Relevant to Health Maintenance Insurance [employer] [place] [facility] CHO[facility] [employer] [place] [employer] Advance Directives For more information, please contact: [phone] * Full Code (Latest Code Status on File) Date Activated Date Inactivated Comments 03/07/2024 3:23 PM 03/08/2024 12:57 AM Care Teams Yield Engineer Relationship Specialty Start Date End Date Danilo Kemp DO [facility] [place] [address] PCP - General Family Medicine 06/18/20 Onel Alvarez MD [address] [facility] [address] [place] [address] Senior Sales Assistant Cardiology 05/03/23
--- OUTSIDE RECORDS SUMMARY | 2024-08-27 10:47 | XMS_ITS | Encounter Summary ---
Author Organization [facility] Address [address] [facility] [address] [place] [address] Care Team Providers Care Wood Turning Lathe Operator Name Role Phone Callum Nguyen MD Primary Care Provider [phone] Adelina Escalante MD Primary Care Provider [phone] Danilo Kemp DO Primary Care Provide r Onel Alvarez MD Unavailable [phone] Encounter Details Date Type Department Care Team (Late st Contact Info) Description 11/29/2016 Orders Only [facility] ProviderSybil MD [address] [place] [id number] Social History Tobacco Use Types Packs/Day Years Used Date Smoking Tobacco: Never Alcohol Use Standard Drinks/Week Comments No 0 (1 standard drink = 0.6 oz pur e alcohol) Sex and Gender Information Value Date Recorded Sex Assigned at Not on file Legal Sex Male 9: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 Historical Provider [facility] MILES CSHAFER Final Result documented in this encounter Visit Diagnoses Not on filedocumented in this encounter Care Teams Wood Turning Lathe Operator Relationship Specialty Start Date End Date Callum Nguyen MD [address] [place] [address] PCP - General 10/27/16 09/26/18 Adelina Escalante MD [address] [place] [address] PCP - General Family Practice 09/27/18 06/17/20 Danilo Kemp DO [address] [place] [address] [id number] PCP - General Family Medicine 06/18/20 Onel Alvarez MD [address] [address] Exchange Trouble Shooter Cardiology 05/03/23 documented as of this encounter
--- OUTSIDE RECORDS SUMMARY | 2024-08-27 10:47 | XMS_ITS | Encounter Summary ---
Author Organization [facility] Address [facility] [place] [address] [place] [address] Care Team Providers Care Manager Investment Name Role Phone Danilo Kemp DO Primary Care Provider + Encounter Details Date Type Department Care Team (Late st Contact Info) Description 05/24/2020 Prep for Procedure [facility] One Day Services [address] [place] [address] Ronda Rivas MD [address] [id number] Social History Tobacco Use Types Packs/Day Years Used Date Smoking Tobacco: Never Smokeless Tobacco: Never Alcohol Use Standard Drinks/Week Comments Yes 10 (1 standard drink = 0.6 oz pu re alcohol) per week AUDIT-C Answer Date Recorded Frequency of Alcohol Consumption 2-3 times a wee k 04/08/2019 Average Number of Drinks Not on file 019 Frequency of Binge Drinking Not on file 03/30 PHQ-2 Answer Date Recorded PHQ-2 Score 0 04/23/2020 Sex and Gender Information Value Date Recorded Sex Assigned at Male 08/22/2024 2:21 PM SALES TEAM RECRUITER Legal Sex Male 4:03 PM CDT Gender Identity Male 05/18/2022 11:46 AM CDT Sexual Orientation Not on file Occupation Industry Job Start Date Job End Date Not on file Not on file Not on file Not on file COVID-19 Exposure Response Date Recorded In the last month, have you been in contact with someone who was confirmed or suspected to have Coronavirus / COVID-19? No / Unsure 05/25/2020 2:31 PM CDT documented as of this encounter Plan of Treatment Upcoming Encounters Date Type Department Care Team (Late st Contact Info) Description 09/18/2024 1:40 PM SALES TEAM RECRUITER Office Visit [facility] Medical Group Multispecialty Care - [facility] [address] [place] [address] Crystal Diamond NP [address] [place] [address] Harjit Lewis PA-C [address] [place] [address] documented as of this encounter Results * PRE-SURGICAL/PRE-PROCEDURE CORONAVIRUS (COVID 19) (06/02/2020 2:35 PM SALES TEAM RECRUITER) CORONAVIRUS SARS COV 2 PCR (RESP) NOT DETECTED NOT DETECTED 06/04/2020 4:31 AM SALES TEAM RECRUITER [facility] Comment: A Not Detected (negative) test result for this test means that SARS- CoV-2 RNA was not present in the specimen above the limit of detection. A negative result does not rule out the possibility of COVID-19 and should not be used as the sole basis for treatment or patient management decisions. ??If COVID-19 is still suspected, based on exposure history together with other clinical findings, re-testing should be considered in consultation with public health authorities. Laboratory test results should always be considered in the context of clinical observations and epidemiological data in making a final diagnosis and patient management decisions. Please review the Fact Sheets and FDA authorized labeling available for health care providers and patients using the following websites: https://www.Lizhi.VisConPro/home/Covid-19/HCP/QuestIVD/fact- sheet.html https://www.Lizhi.VisConPro/home/Covid-19/Patients/ QuestIVD/fact-sheet.html This test has been authorized by the FDA under an Emergency Use Authorization (EUA) for use by authorized laboratories. Due to the current public health emergency, [employer] is receiving a high volume of samples from a wide variety of swabs and media for COVID-19 testing. In order to serve patients during this public health crisis, samples from appropriate clinical sources are being tested. Negative test results derived from specimens received in non-commercially manufactured viral collection and transport media, or in media and sample collection kits not yet authorized by FDA for COVID-19 testing should be cautiously evaluated and the patient potentially subjected to extra precautions such as additional clinical monitoring, including collection of an additional specimen. Methodology: ??Nucleic Acid Amplification Test (NAAT) includes RT-PCR or TMA Additional information about COVID-19 can be found at the [employer] website: www.Local Magnet/Covid19. Test performed at [facility] [place] [address] [place], [place] ??[address] Director: EREN NINA DO,MPH FIRST TEST NO 06/02/2020 2:28 PM [facility] EMPLOYED IN HEALTHCARE NO 06/02/2020 2:28 PM [facility] SYMPTOMATIC DEFINED BY CDC NO 06/02/2020 2:28 PM [facility] DATE OF SYMPTOM ONSET UNSATISFACTORY 06/02/2020 2:57 PM [facility] HOSPITALIZATION STATUS NO 06/02/2020 2:28 PM [facility] PATIENT IN ICU NO 06/02/2020 2:28 PM [facility] RESIDENT OF [facility] NO 06/02/2020 2:28 PM [facility] NO 06/02/2020 2:57 PM [facility] PATIENT'S RACE OTHER 06/02/2020 2:28 PM [facility] ETHNICITY 06/02/2020 2:28 PM [facility] SOURCE (QST) NASOPHARYNGEAL SWAB 06/02/2020 2:28 PM SALES TEAM RECRUITER [facility] NASOPHARYNGEAL SWAB / Unknown 06/02/2020 2:35 PM SALES TEAM RECRUITER Ronda Rivas MD MICROBIOLOGY - GENERAL ORDERABLE S Final Result [facility] [address] [place] [address], [employer] [facility] [address] [place] [address], * PRE-SURGICAL/PRE-PROCEDURE CORONAVIRUS (COVID 19) (05/25/2020 2:57 PM CDT) CORONAVIRUS SARS COV 2 PCR (RESP) NOT DETECTED NOT DETECTED 05/26/2020 7:46 PM CDT [facility] Comment: A Not Detected (negative) test result for this test means that SARS- CoV-2 RNA was not present in the specimen above the limit of detection. A negative result does not rule out the possibility of COVID-19 and should not be used as the sole basis for treatment or patient management decisions. ??If COVID-19 is still suspected, based on exposure history together with other clinical findings, re-testing should be considered in consultation with public health authorities. Laboratory test results should always be considered in the context of clinical observations and epidemiological data in making a final diagnosis and patient management decisions. Please review the Fact Sheets and FDA authorized labeling available for health care providers and patients using the following websites: https://www.Lizhi.VisConPro/home/Covid-19/HCP/QuestIVD/fact- sheet.html https://www.Lizhi.VisConPro/home/Covid-19/Patients/ QuestIVD/fact-sheet.html This test has been authorized by the FDA under an Emergency Use Authorization (EUA) for use by authorized laboratories. Due to the current public health emergency, [employer] is receiving a high volume of samples from a wide variety of swabs and media for COVID-19 testing. In order to serve patients during this public health crisis, samples from appropriate clinical sources are being tested. Negative test results derived from specimens received in non-commercially manufactured viral collection and transport media, or in media and sample collection kits not yet authorized by FDA for COVID-19 testing should be cautiously evaluated and the patient potentially subjected to extra precautions such as additional clinical monitoring, including collection of an additional specimen. Methodology: ??Nucleic Acid Amplification Test (NAAT) includes RT-PCR or TMA Additional information about COVID-19 can be found at the [employer] website: www.[employer]Point Security™.VisConPro/Covid19. Test performed at [facility] [place] [address] [place], [place] ??[address] Director: EREN NINA DO,MPH FIRST TEST UNKNOWN 05/25/2020 2:31 PM CDT [facility] EMPLOYED IN HEALTHCARE NO 05/25/2020 2:31 PM CDT [facility] SYMPTOMATIC DEFINED BY CDC NO 05/25/2020 2:31 PM CDT [facility] HOSPITALIZATION STATUS NO 05/25/2020 2:31 PM CDT [facility] PATIENT IN ICU NO 05/25/2020 2:31 PM CDT [facility] RESIDENT OF [facility] NO 05/25/2020 2:31 PM CDT [facility] NO 05/25/2020 3:00 PM CDT [facility] PATIENT'S RACE OTHER 05/25/2020 2:31 PM CDT [facility] ETHNICITY 05/25/2020 2:31 PM CDT [facility] SOURCE (QST) NASOPHARYNGEAL SWAB 05/25/2020 2:31 PM CDT [facility] NASOPHARYNGEAL SWAB / Unknown 05/25/2020 2:57 PM CDT Ronda Rivas MD MICROBIOLOGY - GENERAL ORDERABLE S Final Result [facility] [address] [place] [address], [employer] [facility] [address] [place] [address], [place] * ECG 12-Lead (05/25/2020 2:49 PM CDT) 05/25/2020 2:49 PM CDT Narrative [facility] RAD - 05/25/2020 4:09 PM CDT ?[facility] ? Test Date: ?2020-05-25 Pat Name: ? EPENESA EPENESA ?Department: ? Room: ? Gender: ? Male ? Harness Racing Handicapper: ?? : ?1970 ? Requested By: RONDA RIVAS Order Number: [id number] ? Reading MD: ?? Alo Stoner ? Measurements Intervals ?Perry ? Rate: ? 113 ?P: ? WA: ? 0 ?QRS: ?52 QRSD: ? 102 ?T: ?-24 QT: ? 334 ? QTc: ?460 ? Interpretive Statements ATRIAL FIBRILLATION WITH RAPID VENTRICULAR RESPONSE NONSPECIFIC T-WAVE ABNORMALITY No previous ECG available for comparison Procedure Note Alo Stoner MD - 05/25/2020 [facility] Test Date: 2020-05-25 Pat Name: LÁZARO SESAY Department: Room: Gender: Male Harness Racing Handicapper: : 1970 Requested By: RONDA RIVAS Order Number: [id number] [place] MD: Alo Stoner Measurements Intervals Perry Rate: 113 P: WA: 0 QRS: 52 QRSD: 102 T: -24 QT: 334 QTc: 460 Interpretive Statements ATRIAL FIBRILLATION WITH RAPID VENTRICULAR RESPONSE NONSPECIFIC T-WAVE ABNORMALITY No previous ECG available for comparison us Ronda Rivas MD ECG ORDERABLES Final Result [facility] documented in this encounter Visit Diagnoses Diagnosis Preop testing- Primary Preoperative examination, unspecified Preop testing Preoperative examination, unspecified documented in this encounter Additional Health Concerns Infection Onset Date Last Indicated Resolved Time COVID-19 Rule Out 05/25/2020 05/25/2020 05/26/2020 7:46 PM CDT COVID-19 Rule Out 06/02/2020 06/02/2020 06/04/2020 4:31 AM SALES TEAM RECRUITER COVID-19 Rule Out 09/07/2022 09/07/2022 09/07/2022 4:13 PM SALES TEAM RECRUITER COVID-19 Rule Out 08/22/2024 08/22/2024 08/22/2024 2:51 PM SALES TEAM RECRUITER Influenza - Seasonal 08/22/2024 08/22/2024 Assessment Noted Time PHQ-9 Depression Total Score: 0 04/23/20 11:17 AM CDT documented as of this encounter Care Teams Manager Investment Relationship Specialty Start Date End Date Danilo Kemp DO [address] [place] [id number] PCP - General FAMILY PRACTICE 03/25/19 documented as of this encounter
--- OUTSIDE RECORDS SUMMARY | 2024-08-27 10:47 | XMS_ITS | Encounter Summary ---
Author Organization [facility] Address [address] [place] [address]. [place], [place] [address] [place] [address] Care Team Providers Care Mattress Packer Name Role Phone Danilo Kemp DO Primary Care Provider + Encounter Details Date Type Department Care Team (Late st Contact Info) Description 10/20/2019 Pre-Procedure Call [facility] One Day Services [address] [place] [address] Renae Malone, RN Social History Tobacco Use Types Packs/Day Years [...] PHQ-2 Answer Date Recorded PHQ-2 Score 0 06/24/2019 Sex and Gender Information Value Date Recorded Sex Assigned at Male 08/22/2024 2:21 PM TWISTING OPERATOR Legal Sex Male 4:03 PM CDT Gender Identity Male 05/18/2022 11:46 AM CDT Sexual Orientation Not on file Occupation Industry Job Start Date Job End Date Not on file Not on file Not on file Not on file documented as of this encounter Plan of Treatment Upcoming Encounters Date Type Department Care Team (Late st Contact Info) Description 09/18/2024 1:40 PM TWISTING OPERATOR Office Visit [facility] Medical Group Multispecialty Care - [address] [place] [address] Crystal Diamond, ASSEMBLY OPERATOR [address] [place] [address] Harjit Lewis, PA-C [address] [place] [address] documented as of this encounter Visit Diagnoses Not on filedocumented in this encounter Additional Health Concerns Infection Onset Date Last Indicated Resolved Time COVID-19 Rule Out 05/25/2020 05/25/2020 05/26/2020 7:46 PM CDT COVID-19 Rule Out 06/02/2020 06/02/2020 06/04/2020 4:31 AM TWISTING OPERATOR COVID-19 Rule Out 09/07/2022 09/07/2022 09/07/2022 4:13 PM TWISTING OPERATOR COVID-19 Rule Out 08/22/2024 08/22/2024 08/22/2024 2:51 PM TWISTING OPERATOR Influenza - Seasonal 08/22/2024 08/22/2024 Assessment Noted Time PHQ-9 Depression Total Score: 0 03/25/20 19 8:17 AM CDT documented as of this encounter Care Teams Mattress Packer Relationship Specialty Start Date End Date Danilo Kemp DO [address] [place] [address] PCP - General FAMILY PRACTICE 03/25/19 documented as of this encounter
--- OUTSIDE RECORDS SUMMARY | 2024-08-27 10:47 | XMS_ITS | Patient Health Summary ---
Author Organization [facility] Address [address] [place] [address] Care Team Providers Care Area Captain Name Role Phone Georgia Garcia MD Primary Care Provider Unavailabl e Note from [facility],non-owned Affiliates and Associated Physician Practices is amultiple site organization consisting of ambulatory clinics and hospital sitesin [place], [place], [place] and [place]. This disclosure is being madepursuant to the Care Everywhere program and may not contain all information available regarding this patient. Last updated 18.[facility] [employer] Social History Tobacco Use Types Packs/Day Years Used Date Smoking Tobacco: Never Assessed Sex and Gender Information Value Date Recorded Sex Assigned at Not on file Gender Identity Not on file Sexual Orientation Not on file Procedures * XR FOOT LEFT 2VW(Performed 02/15/2010) Performed for Gout, Unspecified Results * XR FOOT 2 VW LEFT (02/15/2010 12:12 PM CDT) Anatomical Region Laterality Modality Ankle / Foot Radiographic Carmen ging 02/15/2010 12:2 5 PM CDT Impressions 02/15/2010 12:31 PM CDT No acute osseous abnormality. Narrative 02/15/2010 12:31 PM CDT Exam: Left foot, 2 views Date: 02/15/2010 History: Gout with pain around second and third metatarsals. Findings: No erosions or other inflammatory changes are present. The joint spaces are well maintained. Plantar calcaneal calcaneal enthesophytes are seen. No acute fracture or dislocation is present. Procedure Note Michael Owen MD - 02/15/2010 Exam: Left foot, 2 views Date: 02/15/2010 History: Gout with pain around second and third metatarsals. Findings: No erosions or other inflammatory changes are present. The joint spaces are well maintained. Plantar calcaneal calcaneal enthesophytes are seen. No acute fracture or dislocation is present. IMPRESSION No acute osseous abnormality. Georgia Garcia MD [facility] Care Teams Area Captain Relationship Specialty Start Date End Date Georgia Garcia MD RETIRED PCP - General 02/15/10
--- OUTSIDE RECORDS SUMMARY | 2024-08-27 10:47 | XMS_ITS | Clinical Summary ---
Author Organization [facility] Address [address] [place] [address] Care Team Providers Care Hr Generalist Name Role Phone Georgia Garcia MD Primary Care Provider Unavailabl e Source Comments [facility],non-owned Affiliates and Associated Physician Practices is amultiple site organization consisting of ambulatory clinics and hospital sitesin [place], [place], [place] and [place]. This disclosure is being madepursuant to the Care Everywhere program and may not contain all information available regarding this patient. Last updated 18.[facility] [employer] Social History Tobacco Use Types Packs/Day Years Used Date Smoking Tobacco: Never Assessed Sex and Gender Information Value Date Recorded Sex Assigned at Not on file Gender Identity Not on file Sexual Orientation Not on file Plan of Treatment Health Maintenance Due Date Last Done Comments COLOGUARD (AGES 45-75) - COL ON CA SCREENING 1972 COLON MONITORING 1972 COLONOSCOPY - COLON CA SCREENING 1972 CT COLONOGRAPHY - COLON CA SCREENING 1970 Colorectal Cancer Screening 1972 FIT - COLON CA SCREENING 1972 FLEX SIG - COLON CA SCREENING 1972 LIPID TESTING 1972 HIV SCREENING 12/24/1987 HEPATITIS C SCREENING 12/19/1990 DTAP/TDAP/TD VACCINES (1 - Tdap) 12/24/1991 HEPATITIS B VACCINE (1 of 3 - 19+ 3-dose series) 12/24/1991 PNEUMOCOCCAL VACCINE 50+ (1 of 1 - PCV) 2022 ZOSTER VACCINE (1 of 2) 2022 COVID-19 VACCINE ( - 2023-2 5 season) 2024 INFLUENZA VACCINE (#1) 2024 DEPRESSION SCREENING 07/30/2024 HIB VACCINE Aged Out No longer eligi ble based on patient's age to complete this topic HPV VACCINE Aged Out No longer eligi ble based on patient's age to complete this topic MENINGOCOCCAL (Group B) VACCINE Aged Out No longer eligible based on patient's age to complete this topic MENINGOCOCCAL VACCINE Aged Out No roula vignesh eligible based on patient's age to complete this topic PNEUMOCOCCAL VACCINE Aged Out No long er eligible based on patient's age to complete this topic Care Teams Hr Generalist Relationship Specialty Start Date End Date Georgia Garcia MD RETIRED PCP - General 02/15/10
--- OUTSIDE RECORDS SUMMARY | 2024-08-27 10:47 | XMS_ITS | Clinical Summary ---
Author Organization [facility] Address [address] [place] [id number] Care Team Providers Care Taproom Attendant Name Role Phone Danilo Kemp Primary Care Provide r Onel Alvarez MD Unavailable [phone] Allergies No known active allergies Medications ergocalciferol [...] 06/03/2024 Assessment & Plan (06/03/2024 4:15 PM ZONING ADMINISTRATOR): - remains compliant on apixaban -denies any issues with bruising or bleeding -recommend continued therapy for thromboprophylaxis Automatic implantable cardiac defibrillator in s itu 06/03/2024 Assessment & Plan (06/03/2024 4:16 PM ZONING ADMINISTRATOR): - status post dual-chamber ICD placement with [...] Obesity (BMI 35.0-39.9 without comorbidity) Drug intoxication ([facility]) 03/24/2016 Overview (11/02/2016): At risk for amiodarone toxicity with jail use Obesity due to excess calories with [...] shared decision-making and concepts found within the [employer] ICD CardioSmart Decision Aid. [...] HFrEF (heart failure with reduced ejection fraction) ([facility]) 07/21/2015 Overview (11/02/2016): Chronic systolic heart failure Obstructive sleep apnea syndrome 07/21/2015 Overview (11/02/2016): YUDY on CPAP Longstanding persistent atrial fibrillation ([facility]) 07/21/2015 Overview (11/02/2016): Persistent atrial fibrillation Assessment & Plan (06/03/2024 4:15 PM ZONING ADMINISTRATOR): - minimally symptomatic persistent atrial fibrillation with [...] now will continue with rate control approach. [id number] = 2 (htn, CHF) --Continue apixaban 5 mg BID --Continue metoprolol XL 50 mg daily High risk drug monitoring status 04/15/2014 Overview (11/02/2016): Chronic anticoagulation Atrial fibrillation ([facility]) 02/04/2014 Overview (11/02/2016): Atrial fibrillation Hypertension 02/04/2014 Overview (11/02/2016): HTN (hypertension) Shortness of breath 02/04/2014 Overview (11/02/2016): Dyspnea Resolved Problems Problem Noted Date Diagnosed Date Resolved Date Paroxysmal atrial fibrillation ([facility]) 09/17/2015 02/12/2024 Overview (11/02/2016): Paroxysmal atrial fibrillation Diabetes mellitus 02/04/2014 06/18/2020 Overview (11/02/2016): DM (diabetes mellitus) Encounters Date Type Department Care Team Description 07/11/2024 9:15 AM ZONING ADMINISTRATOR Office Visit [facility] Sleep Medicine at [address] [place] [address] Halle Jackson MD Obstructive sleep apnea (Primary Dx); Hypersomnia; Obesity, unspecified class, unspecified obesity type, unspecified whether serious comorbidity present 07/10/2024 Telephone [facility] Rheumatology [address] 5[address] [place] [address] [place] [address] Estela Frye, OLI Test Results (Labs) 07/09/2024 8:20 PM ZONING ADMINISTRATOR - 07/09/2024 11:59 PM ZONING ADMINISTRATOR Hospital Encounter [facility] [address] [place] [address] Idiopathic chronic gout of multiple sites with tophus Discharge Disposition: Discharge to home or self care 07/09/2024 3:40 PM ZONING ADMINISTRATOR Lab [facility] Infectious Diseases [address] [place] [address] 07/09/2024 3:00 PM ZONING ADMINISTRATOR Office Visit [facility] Rheumatology [address] [place] [address] Beatrice Almaraz MD Idiopathic chronic gout of multiple sites with tophus (Primary Dx); Arthralgia of both hands 06/02/2024 1:00 PM ZONING ADMINISTRATOR Office Visit [facility] Cardiology [address] [place] [address] Onel Alvarez MD Chronic HFrEF (heart failure with reduced ejection fraction) (CMS/HCC) (HCC) (Primary Dx); Longstanding persistent atrial fibrillation (CMS/HCC) (HCC); Cardiomyopathy, unspecified type (HCC) 05/28/2024 3:15 PM CDT [facility] [address] [place] [address] [place] [phone] Anna Christianson NP Longstanding persistent atrial fibrillation (CMS/HCC) (HCC) (Primary Dx); Automatic implantable cardiac defibrillator in situ; Anticoagulation management encounter 05/28/2024 3:00 PM CDT Ancillary Procedure [facility] [address] [place] [address] [place] [phone] Automatic implantable cardiac defibrillator in situ (Primary Dx); Nonischemic cardiomyopathy (CMS/HCC) (HCC) from Last 3 Months Immunizations Name Administration Dates Next Due Pfizer SARS-CoV-2 Monovalent Vaccination (12+ Yrs) PURPLE 10/26/2020 Surgical History Surgery Date Site/Laterality Comments COLONOSCOPY CARDIOVERSION CARDIAC CATHETERIZATION 05/28/2023 Left CARDIAC DEFIBRILLATOR PLACEMENT 02/28/2024 - 03/29/2024 Medical History Medical History Date Comments Persistent atrial fibrillation Type 2 diabetes mellitus Benign Hypertension Nonischemic cardiomyopathy 05/28/2023 Chronic HFrEF (heart failure with reduced ejecti on fraction) Impotence of organic origin Articular gout Shortness of breath Obstructive sleep apnea syndrome 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 History of placement of internal cardiac defibri llator 03/07/2024 Family History Medical History Relation Name Comments Gout Brother Gout Father Hypertension Father No Known Problems Maternal Grandfather No Known Problems Maternal Grandmother Hypertension Mother Other Other No family histo ry of Cardiac arrhythmias; No Known Problems Paternal Grandfather No Known Problems Paternal Grandmother Relation Name Status Comments Brother Father Maternal Grandfather Maternal Grandmother Mother Other Paternal Grandfather Paternal Grandmother Social History Tobacco [...] on file Legal Sex Male 9:29 PM ZONING ADMINISTRATOR Gender Identity Male 02/11/2024 6:45 PM CDT Sexual Orientation Not on file Occupation Industry Job Start Date Job End Date Not on file Not on file Not on file Not on file Obstetrics History Last Filed Vital Signs Vital Sign Reading Time Taken Comments Blood Pressure 104/71 07/11/2024 9:08 AM ZONING ADMINISTRATOR Pulse 67 07/11/2024 9:08 AM ZONING ADMINISTRATOR Temperature 36.1 ??C (97 ??F) 07/09/2024 2:48 PM ZONING ADMINISTRATOR Respiratory Rate 18 11/02/2023 10:0 5 AM CDT Oxygen Saturation 95% 07/11/2024 9:08 AM ZONING ADMINISTRATOR Inhaled Oxygen Concentration - - Weight 138.3 kg (304 lb 12.8 oz) 07/11/2024 9:08 AM ZONING ADMINISTRATOR Height 190.5 cm (6' 3 ) 07/11/2024 9:08 AM ZONING ADMINISTRATOR Body Mass Index 38.1 07/11/2024 9:08 AM ZONING ADMINISTRATOR Plan of Treatment Health Maintenance Due Date Last Done Comments Albumin Creatinine Ratio, Urine 1972 Colon Cancer Screening-Colonoscopy 1972 Depression Screening 1972 Hemoglobin A1C 1972 Hepatitis C Screening 1972 Prostate Cancer Screening-PSA 1972 Dilated Eye Exam 1972 Foot Exam 1972 Pneumococcal vaccine <65 (1 of 2 - PCV) 1978 DTaP/Tdap/Td Vaccine (1 - Tdap) 12/24/1983 Hepatitis B Screening 1990 Regular Well Visit/Exam 18-64 1990 Zoster Vaccine (1 of 2) 2022 Covid-19 Vaccine (2 - 2023-2 5 season) 2024 10/26/2020 Influenza Vaccine (#1) 2024 Lipid Panel 10/04/2024 10/05/2023, 03/0 02/2024, 02/16/2023, Additional history exists eGFR 07/09/2025 07/09/2024, 03/07/2024 Medical Devices Implanted Type Area Food Mixer Repairer Device Identifier Shelf Expiration Date Model / Serial / Lot [employer] Defib Cardiac [id number] [place] Implantable 2 Chamber [id number] - [id number] - [id number] Implanted:Qty: 1 on 03/07/2024 by Edwin Minaya III, MD at [facility] ICD [employer] [id number] 04/28/2024 C [id number] / [id number] / [employer] Durata 6.8fr 65cm True Bipolar Active Fixation Extendable 1 Coil 7122q/65 - [id number] - [id number] Implanted:Qty: 1 on 03/07/2024 by Edwin Minaya III, MD at [facility] Lead [employer] [id number] 10/27/2026 7122Q/65 / [id number] / [employer] Active Fixation Steroid Eluting Latex Free Sterile Right Atrium Ventricle Ultipace 52cm [id number]/52 - [id number] - [id number] Implanted:Qty: 1 on 03/07/2024 by Edwin Minaya III, MD at [facility] Lead [employer] [id number] 08/29/2026 L [id number] / [id number] / Procedures Procedure Name Priority Date/Time Associated Diagnosis Comments EGFR Routine 07/09/2024 3:00 PM ZONING ADMINISTRATOR Idiopathic chronic gout of multiple sites with tophus URIC ACID Routine 07/09/2024 3:00 PM ZONING ADMINISTRATOR Idiopathic chronic gout of multiple sites with tophus BASIC METABOLIC PANEL Routine 07/09/2024 3:00 PM ZONING ADMINISTRATOR Idiopathic chronic gout of multiple sites with tophus ECG 12-LEAD Routine 05/28/2024 3:10 PM CDT Longstanding persistent atrial fibrillation (CMS/HCC) (HCC) DEVICE CHECK - IN OFFICE Routine 05/28/2024 2:53 PM CDT Nonischemic cardiomyopathy (CMS/HCC) (HCC) LIPID PANEL Routine 10/05/2023 from Last 3 Months or Most Recently Relevant to Health Maintenance Results * (ABNORMAL) eGFR (07/09/2024 3:00 PM ZONING ADMINISTRATOR) [facility] Signature eGFR 58(L) >=60 mL/min/1. 73 m2 Comment: [...] last reviewed 2021. Blood 07/09/2024 3:00 PM ZONING ADMINISTRATOR 07/09/2024 9:12 PM ZONING ADMINISTRATOR Beatrice Almaraz MD LAB BLOOD ORDERABLES Final Result Performing Organization Address [facility] Co de Phone Number [facility] [address] [place] [address] * Uric acid (07/09/2024 3:00 PM ZONING ADMINISTRATOR) Uric acid 5.7 3.0 - 8.0 mg/dL Blood 07/09/2024 3:00 PM ZONING ADMINISTRATOR 07/09/2024 8:51 PM ZONING ADMINISTRATOR Beatrice Almaraz MD LAB BLOOD ORDERABLES Final Result Performing Organization Address [facility] Co de Phone Number [facility] [address] [place] [address] * (ABNORMAL) Basic metabolic panel (07/09/2024 3:00 PM ZONING ADMINISTRATOR) Sodium 140 135 - 145 mmol/L Potassium, pl 4.3 3.3 - 4.9 mmol/L [facility] Chloride 100 97 - 110 mmol/L [facility] CO2 27 22 - 32 mmol/L [facility] Anion gap 13 2 - 15 mmol/L [facility] BUN 21 6 - 25 mg/dL [facility] Creatinine 1.45(H) 0.80 - 1.30 mg/dL [facility] Glucose 103 70 - 199 mg/dL [facility] Comment: Interpretive Data Fasting glucose >/= 126 [...] 2022. Calcium 9.6 8.5 - 10.3 mg/dL [facility] Blood 07/09/2024 3:00 PM ZONING ADMINISTRATOR 07/09/2024 8:51 PM ZONING ADMINISTRATOR Beatrice Almaraz MD LAB BLOOD ORDERABLES Final Result Performing Organization Address City/State/[facility] Co de Phone Number [facility] [address] [facility] Department [place] [address] * ECG 12 lead (05/28/2024 3:10 PM CDT) Result [facility] Anna Christianson NP ECG ORDERABLES Final Result * DEVICE CHECK - IN OFFICE (05/28/2024 2:53 PM CDT) Anatomical Region Laterality Modality Other Narrative 06/02/2024 3:53 PM ZONING ADMINISTRATOR Table formatting from the original result was [...] to KSENIA Episodes last 90 days/Comments: AF [place] 100% 91 stored ventricular events episodes classified [...] 3) Programming appropriate for device measurements Marion Decker, SURAJ Edwin Minaya III, MD [facility] [...] Most Recently Relevant to Health Maintenance Insurance BLUE ACCESS CHOICE [place] [employer] [facility] CHOICE PLUS [facility] BLUE [employer] CHOICE CT CIG[employer] CIG BLUE ACCESS CHOICE CT Advance Directives For more information, please contact: [phone] * Full Code (Latest Code Status on File) Date Activated Date Inactivated Comments 03/07/2024 3:23 PM 03/08/2024 12:57 AM Care Teams Taproom Attendant Relationship Specialty Start Date End Date Danilo Kemp DO [address] [place] [address] PCP - General Family Medicine 06/18/20 Onel Alvarez MD [address] [address] [employer] Cardiology 05/03/23
[2024-08-27 11:16] VITALS: BP 120/80; PULSE 96; RESP 20; TEMP 36.9; O2SAT 95
[2024-08-27 11:34] VITALS: PULSE 93; RESP 24
[2024-08-27] MEDS: ALBUTEROL SULFATE NEB 2.5 MG/3 ML INH 5 MG INHALATION (11:34)
--- NOTE | 2024-08-27 11:42 | ED.GENADULT ---
HPI - General Adult General Chief complaint: Upper Respiratory Infection Stated complaint: flu, cough getting worse Time Seen by Provider: 08/27/24 10:50 History of Present Illness HPI narrative: 53-year-old male presenting to the emergency department for evaluation for worsening cough and congestion. Patient was diagnosed with influenza Sunday and provided albuterol inhaler but states he is having continuous coughing and wheezing feels like his symptoms are worsening. Patient has no prior history of underlying lung disease. Patient denies any significant cardiac history. Related Data Home Medications ?Medication ?Instructions ?Recorded ?Confirmed ?Last Taken ?Type allopurinol 300 mg tablet 300 mg PO DAILY 05/21/20 07/05/22 Unknown History hydroxychloroquine 200 mg tablet 200 mg PO DAILY 05/21/20 07/05/22 Unknown History colchicine 0.6 mg tablet 0.6 mg PO DAILY 11/19/20 07/05/22 Unknown History lisinopril 5 mg tablet 5 mg PO DAILY 11/19/20 07/05/22 Unknown History methylprednisolone 4 mg tablet 4 mg PO DAILY 11/19/20 07/05/22 Unknown History metoprolol tartrate 25 mg tablet 25 mg PO DAILY 11/19/20 07/05/22 Unknown History Allergies Allergy/AdvReac Type Severity Reaction Status Date / Time No Known Allergies Allergy Verified 08/27/24 10:07 Review of Systems Review of Systems: All systems reviewed & are unremarkable except as noted in HPI and below PMFSH Past Medical History Medical History (Updated 08/27/24 @ 12:58 by Samy Santamaria MD) Obesity Colon cancer screening Abdominal pain, chronic, left lower quadrant Sleep apnea Diabetes mellitus Obesity HTN (hypertension) PAF (paroxysmal atrial fibrillation) Cardiomyopathy ULYSSES positive Gout (~1999) Vitamin D deficiency Rheumatoid arthritis with rheumatoid factor of multiple sites without organ or systems involvement Gout Arthritis Family History Family History Mother Diabetes mellitus Social History Social History Smoking status: Never smoker Alcohol intake: current Exam Narrative: APPEARANCE: Well appearing, no pain, no distress, well-nourished. HEAD: normocephalic, atraumatic. EYES: PERRLA/EOMI, conjunctivae clear. NOSE: Normal no drainage EARS:TMS clear with good light reflex. THROAT: Pharynx clear, no exudate. NECK: Supple. No adenopathy, no masses. RESPIRATORY: Expiratory wheeze on exam CARDIOVASCULAR: Regular rate and rhythm without murmurs rubs or gallops. ABDOMINAL: Soft, nontender, nondistended, normal bowel sounds MUSCULOSKELETAL: Moves all extremities. Strength/ROM intact, No edema, No calf tenderness. NEURO: Alert. Cranial nerves II through XII intact. Grossly intact SKIN: Warm, dry. Normal Color Course Vital Signs Vital signs: Vital Signs Temperature 98.0 F 08/27/24 10:05 Pulse Rate 87 08/27/24 10:05 Respiratory Rate 18 08/27/24 10:05 Blood Pressure 146/97 H 08/27/24 10:05 Pulse Oximetry 95 08/27/24 10:05 Oxygen Delivery Room Air 08/27/24 10:05 Temperature 98.5 F 08/27/24 12:58 Pulse Rate 78 08/27/24 12:58 Respiratory Rate 20 08/27/24 12:58 Blood Pressure 139/90 08/27/24 12:58 Pulse Oximetry 95 08/27/24 12:58 Oxygen Delivery Room Air 08/27/24 11:28 Medical Decision Making MDM Narrative Medical decision making narrative: 53-year-old male presents emergency department for evaluation for worsening cough and congestion. Patient did test flu positive patient was negative for influenza B RSV and COVID. Chest x-ray was concerning for possible underlying pneumonia. Patient will be started on antibiotics and provided additional medication for cough suppression. Differential Diagnosis Differential Diagnosis: Pneumonia, RSV, COVID, influenza Vital Signs Vital Signs: Vital Signs Temperature 98.0 F 08/27/24 10:05 Pulse Rate 87 08/27/24 10:05 Respiratory Rate 18 08/27/24 10:05 Blood Pressure 146/97 H 08/27/24 10:05 Pulse Oximetry 95 08/27/24 10:05 Oxygen Delivery Room Air 08/27/24 10:05 Temperature 98.5 F 08/27/24 12:58 Pulse Rate 78 08/27/24 12:58 Respiratory Rate 20 08/27/24 12:58 Blood Pressure 139/90 08/27/24 12:58 Pulse Oximetry 95 08/27/24 12:58 Oxygen Delivery Room Air 08/27/24 11:28 Lab Data Lab results reviewed: Yes I reviewed the patient's lab results. Labs: Lab Results 08/27/24 Range/Units 11:04 Influenza A (RT-PCR) Positive A (Negative) Influenza B (RT-PCR) Negative (Negative) RSV (RT-PCR) Negative (Negative) SARS-CoV-2 RNA (RT-PCR) Negative (Negative) Imaging Data Radiologist's impression: Impressions Chest X-Ray 08/27/24 11:35 Impression: 1: Subtle patchy right sided infiltrates which may represent atelectasis or developing pneumonia. Discharge Plan Discharge Clinical Impression: Pneumonia Patient Disposition: Home, Self-Care Condition: Stable Instructions: Antibiotic Form Additional Instructions: Antibiotic as directed until completed. Albuterol inhaler with spacer for shortness of breath. Tessalon Perles for cough suppression. Tylenol 3 as needed for additional cough suppression. Have close follow-up with your primary care physician. If you have any worsening symptoms then please call or return to the emergency department. Patient Language: Paraguayan Prescriptions: New azithromycin 250 mg tablet See Rx Instructions .ROUTE .COMPLEX Qty: 6 0RF Rx Instructions: For 250 mg dose pack: take 500 mg today (day 1), then 250 mg for 4 days (days 2-5) benzonatate 100 mg capsule 100 mg PO TID PRN (Reason: cough) Qty: 14 0RF albuterol sulfate 90 mcg/actuation HFA aerosol inhaler 1 puff inhalation QID Qty: 6.7 0RF amoxicillin-pot clavulanate 875-125 mg tablet 1 tablet PO Q12H 7 Days Qty: 14 0RF acetaminophen-codeine 300-30 mg tablet 1 tablet PO Q12H PRN (Reason: cough) Qty: 10 0RF No Action allopurinol 300 mg tablet 300 mg PO DAILY hydroxychloroquine 200 mg tablet 200 mg PO DAILY lisinopril 5 mg tablet 5 mg PO DAILY metoprolol tartrate 25 mg tablet 25 mg PO DAILY colchicine 0.6 mg tablet 0.6 mg PO DAILY methylprednisolone 4 mg tablet 4 mg PO DAILY Follow-up/Referrals: Justo,DO Danilo [Primary Care Provider] -
[2024-08-27 11:44] VITALS: PULSE 72; RESP 24
[2024-08-27 11:50] VITALS: BP 120/80; PULSE 89; RESP 20; TEMP 36.9; O2SAT 95
[2024-08-27] MEDS: AZITHROMYCIN 250 MG TABLET 500 MG PO (11:51)
[2024-08-27] MEDS: HYDROcodone/acetaminophen (*CRX) 5-325 MG TABLET 1 TAB PO (11:52)
[2024-08-27 11:53] LABS: Influenza A QL RT-PCR Positive (Negative); Influenza B QL RT-PCR Negative (Negative); RSV RNA, RT-PCR Negative (Negative); SARS-CoV-2 RNA PCR Negative (Negative)
[2024-08-27] MEDS: BENZONATATE 100 MG CAPSULE PO (12:03)
[2024-08-27] MEDS: AMOXICILLIN/CLAVULANATE K 875-125 MG TAB 1 TABLET PO (12:03)
--- OUTSIDE RECORDS SUMMARY | 2024-08-27 12:49 | XMS_ITS | Clinical Summary ---
Author Organization [facility] / [facility] Address [address] [place] [address] [place] [address] Care Team Providers Care Stone Hand Name Role Phone Danilo Kemp DO Primary [...] MG/3ML injectionIndica tions:BMI 39.0-39.9,adult ,Persistent atrial fibrillation ([facility] HHS/HCC),YUDY (obstructive sleep apnea),Chronic HFrEF (heart failure with reduced ejection fraction) ([facility] HHS/HCC) Start With: 0.6 mg [...] (05/13/2020): Added automatically from request for surgery [id number] Abdominal fullness 09/06/2018 Impotence of organic origin 09/01/2016 Overview (11/18/2020): Overview: Erectile dysfunction, unspecified erectile dysfunction type Erectile dysfunction, unspecified erectile dysfunction type Cardiomyopathy ([facility]) 09/17/2015 Overview (11/18/2020): Overview: Cardiomyopathy [...] HFrEF (heart failure with reduced ejection fraction) ([facility]) 07/21/2015 Overview (11/18/2020): Overview: Chronic [...] Overview: DM (diabetes mellitus) Persistent atrial fibrillation ([facility]) 02/04/2014 Overview (11/18/2020): Overview: Paroxysmal [...] Type Department Care Team Description 08/27/2024 Telephone [facility] Family & Internal [address] [address] Danilo Kemp, DO Information 08/22/2024 2:20 PM SCHEDULING ADMINISTRATOR Office Visit [facility] Family Internal [address] [address] Danilo Kemp, DO URI (Chills, cough, body aches, and wheezing for 5 days. ) 08/22/2024 Telephone [facility] Family & Internal [address] [address] Danilo Kemp, DO Prior Authorization [...] Sex Assigned at Male 08/22/2024 2:21 PM SCHEDULING ADMINISTRATOR Legal Sex Male 4:03 PM CDT Gender Identity Male 05/18/2022 11:46 AM CDT Sexual Orientation Not on file Occupation Industry Job Start Date Job End Date Not on file Not on file Not on file Not on file Last Filed Vital Signs Vital Sign Reading Time Taken Comments Blood Pressure 112/80 08/22/2024 2:22 PM SCHEDULING ADMINISTRATOR Pulse 87 08/22/2024 2:22 PM SCHEDULING ADMINISTRATOR Temperature 36.1 ??C (97 ??F) 08/22/2024 2:22 PM SCHEDULING ADMINISTRATOR Respiratory Rate 18 08/22/2024 2:22 PM SCHEDULING ADMINISTRATOR Oxygen Saturation 96% 08/22/2024 2:22 PM SCHEDULING ADMINISTRATOR Inhaled Oxygen Concentration - - Weight 139.1 kg (306 lb 11.2 oz) 08/22/2024 2:22 PM SCHEDULING ADMINISTRATOR Height 190.5 cm (6' 3 ) 08/22/2024 2:22 PM SCHEDULING ADMINISTRATOR Body Mass Index 38.33 08/22/2024 2:22 PM SCHEDULING ADMINISTRATOR Plan of Treatment Upcoming Encounters Date Type Department Care Team (Late st Contact Info) Description 09/18/2024 1:40 PM SCHEDULING ADMINISTRATOR Office Visit [facility] Multispecialty Care - [address] [place] [address] Crystal Diamond, DIGITAL BUSINESS ANALYST [address] [facility] [address] [place] [address] Harjit Lewis, PAAdiC [address] [facility] [address] [place] [address] Health Maintenance Due Date Last Done Comments [...] 07/17/2019 Hepatitis C Completed 05/23/2022 PHQ-2 (Physician Douglas) Completed 08/22/2024 Meningococcal B Vaccine Aged Out [...] XR CHEST PA+LAT STAT 08/22/2024 3:10 PM SCHEDULING ADMINISTRATOR Influenza A CORONAVIRUS (COVID-19) INFLUENZA A & B ANTIGEN IA PANEL Routine 08/22/2024 Acute cough HEPATITIS C ANTIBODY W/RFX TO HCV RNA Routine 05/23/2022 3:32 PM CDT Need for hepatitis C screening test Annual physical exam COLONOSCOPY Routine 07/17/2019 10:51 AM SCHEDULING ADMINISTRATOR from Last 3 Months or Most Recently Relevant to Health Maintenance Results * XR CHEST PA+LAT (08/22/2024 3:10 PM SCHEDULING ADMINISTRATOR) Anatomical Region Laterality Modality Chest Radiographic Carmen ging 08/22/2024 2:58 PM SCHEDULING ADMINISTRATOR Narrative 08/22/2024 3:15 PM SCHEDULING ADMINISTRATOR [facility] Family and Internal Medicine - [address] ??[id number] EXAM: XR CHEST PA+LAT INDICATION: Shortness of [...] Note Juan Luis Sheikh MD - 08/22/2024 [facility] Family [facility] Internal Medicine - [address] [address] EXAM: XR CHEST PA+LAT INDICATION: Shortness of [...] A & B ANTIGEN IA PANEL (08/22/2024) [facility] CORONAVIRUS ANTIGEN IA NEGATIVE NEGATIVE [facility] INFLUENZA A POSITIVE(A) NEGATIVE [facility] INFLUENZA B NEGATIVE NEGATIVE [facility] Internal Control: VALID VALID [facility] NASAL STRUCTURE / Unknown 08/22/2024 Danilo Kemp DO MICROBIOLOGY - GENERAL O RDERABLES Final Result [facility] [address] [place] [address], * HEPATITIS C ANTIBODY W/RFX TO HCV [...] PM CDT Performed at: ??01 - [facility] [address], [place], [place] ??[id number] English Drawer: Matthew Urias PhD, Phone: ??[phone] Danilo Kemp DO LABORATORY Final Re sult [facility] [address] [place] [address] [facility] 1 from Last 3 Months or Most Recently Relevant to Health Maintenance Additional Health Concerns Infection Onset Date Last Indicated Influenza - Seasonal 08/22/2024 08/22/2024 [facility] Care Teams Stone Hand Relationship Specialty Start Date End Date Danilo Kemp DO [address] [place] [id number] PCP - General FAMILY PRACTICE 03/25/19
--- OUTSIDE RECORDS SUMMARY | 2024-08-27 12:50 | XMS_ITS | Clinical Summary ---
Author Organization [facility] Address [address] [place] [phone] Care Team Providers Care Blueprint Tracer Name Role Phone Danilo Kemp Primary Care Provide r Onel Alvarez MD Unavailable [phone] Allergies No known active allergies Medications ergocalciferol [...] 06/03/2024 Assessment & Plan (06/03/2024 4:15 PM PLASTER DIE MAKER): - remains compliant on apixaban -denies any issues with bruising or bleeding -recommend continued therapy for thromboprophylaxis Automatic implantable cardiac defibrillator in s itu 06/03/2024 Assessment & Plan (06/03/2024 4:16 PM PLASTER DIE MAKER): - status post dual-chamber ICD placement with [...] (BMI 35.0-39.9 without comorbidity) Drug intoxication ([facility]) 03/24/2016 Overview (11/02/2016): At risk for amiodarone toxicity with snf use Obesity due to excess calories with [...] shared decision-making and concepts found within the [employer] ICD CardioSmart Decision Aid. [...] (heart failure with reduced ejection fraction) ([facility]) 07/21/2015 Overview (11/02/2016): Chronic systolic heart failure Obstructive sleep apnea syndrome 07/21/2015 Overview (11/02/2016): YUDY on CPAP Longstanding persistent atrial fibrillation ([facility]) 07/21/2015 Overview (11/02/2016): Persistent atrial fibrillation Assessment & Plan (06/03/2024 4:15 PM PLASTER DIE MAKER): - minimally symptomatic persistent atrial fibrillation with [...] now will continue with rate control approach. [id number] = 2 (htn, CHF) --Continue apixaban 5 mg BID --Continue metoprolol XL 50 mg daily High risk drug monitoring status 04/15/2014 Overview (11/02/2016): Chronic anticoagulation Atrial fibrillation ([facility]) 02/04/2014 Overview (11/02/2016): Atrial fibrillation Hypertension 02/04/2014 Overview (11/02/2016): HTN (hypertension) Shortness of breath 02/04/2014 Overview (11/02/2016): Dyspnea Resolved Problems Problem Noted Date Diagnosed Date Resolved Date Paroxysmal atrial fibrillation ([facility]) 09/17/2015 02/12/2024 Overview (11/02/2016): Paroxysmal atrial fibrillation Diabetes mellitus 02/04/2014 06/18/2020 Overview (11/02/2016): DM (diabetes mellitus) Encounters Date Type Department Care Team Description 07/11/2024 9:15 AM PLASTER DIE MAKER Office Visit [facility] Sleep Medicine at [address] [place] [address] Halle Jackson MD Obstructive sleep apnea (Primary Dx); Hypersomnia; Obesity, unspecified class, unspecified obesity type, unspecified whether serious comorbidity present 07/10/2024 Telephone [facility] Rheumatology [address] [facility] 5[address] [place] [address] [place] [address] Estela Frye, OLI Test Results (Labs) 07/09/2024 8:20 PM PLASTER DIE MAKER - 07/09/2024 11:59 PM PLASTER DIE MAKER Hospital Encounter [facility] [address] [place] [address] Idiopathic chronic gout of multiple sites with tophus Discharge Disposition: Discharge to home or self care 07/09/2024 3:40 PM PLASTER DIE MAKER Lab [facility] Infectious Diseases [address] [facility] [address] [place] [address] 07/09/2024 3:00 PM PLASTER DIE MAKER Office Visit [facility] Rheumatology [address] [facility] [address] [place] [address] Beatrice Almaraz MD Idiopathic chronic gout of multiple sites with tophus (Primary Dx); Arthralgia of both hands 06/02/2024 1:00 PM PLASTER DIE MAKER Office Visit [facility] Cardiology [address] [facility] [address] [place] [address] Onel Alvarez MD Chronic HFrEF (heart failure with reduced ejection fraction) (CMS/HCC) (HCC) (Primary Dx); Longstanding persistent atrial fibrillation (CMS/HCC) (HCC); Cardiomyopathy, unspecified type (HCC) 05/28/2024 3:15 PM CDT [facility] [address] [place] [address] [place] [phone] Anna Christianson NP Longstanding persistent atrial fibrillation (CMS/HCC) (HCC) (Primary Dx); Automatic implantable cardiac defibrillator in situ; Anticoagulation management encounter 05/28/2024 3:00 PM CDT Ancillary Procedure [facility] [address] [place] [address] [place] [phone] Automatic implantable cardiac defibrillator in situ [...] on file Legal Sex Male 9:29 PM PLASTER DIE MAKER Gender Identity Male 02/11/2024 6:45 PM CDT Sexual Orientation Not on file Occupation Industry Job Start Date Job End Date Not on file Not on file Not on file Not on file Obstetrics History Last Filed Vital Signs Vital Sign Reading Time Taken Comments Blood Pressure 104/71 07/11/2024 9:08 AM PLASTER DIE MAKER Pulse 67 07/11/2024 9:08 AM PLASTER DIE MAKER Temperature 36.1 ??C (97 ??F) 07/09/2024 2:48 PM PLASTER DIE MAKER Respiratory Rate 18 11/02/2023 10:0 5 AM CDT Oxygen Saturation 95% 07/11/2024 9:08 AM PLASTER DIE MAKER Inhaled Oxygen Concentration - - Weight 138.3 kg (304 lb 12.8 oz) 07/11/2024 9:08 AM PLASTER DIE MAKER Height 190.5 cm (6' 3 ) 07/11/2024 9:08 AM PLASTER DIE MAKER Body Mass Index 38.1 07/11/2024 9:08 AM PLASTER DIE MAKER Plan of Treatment Health Maintenance Due Date [...] 07/09/2024, 03/07/2024 Medical Devices Implanted Type Area Registered Route Associate Device Identifier Shelf Expiration Date Model / Serial / Lot [employer] Defib Cardiac [id number] Talpa Implantable 2 Chamber [id number] - [id number] - [id number] Implanted:Qty: 1 on 03/07/2024 by Edwin Minaya III, MD at [facility] ICD [employer] [id number] 04/28/2024 C [id number] / [id number] / [employer] Durata 6.8fr 65cm True Bipolar Active Fixation Extendable 1 Coil 7122q/65 - [id number] - [id number] Implanted:Qty: 1 on 03/07/2024 by Edwin Minaya III, MD at [facility] Lead [employer] [id number] 10/27/2026 7122Q/65 / [id number] / [employer] Active Fixation Steroid Eluting Latex Free Sterile Right Atrium Ventricle Ultipace 52cm [id number]/52 - [id number] - [id number] Implanted:Qty: 1 on 03/07/2024 by Edwin Minaya III, MD at [facility] Lead [employer] [id number] 08/29/2026 L [id number] / [id number] / Procedures Procedure Name Priority Date/Time Associated Diagnosis Comments EGFR Routine 07/09/2024 3:00 PM PLASTER DIE MAKER Idiopathic chronic gout of multiple sites with tophus URIC ACID Routine 07/09/2024 3:00 PM PLASTER DIE MAKER Idiopathic chronic gout of multiple sites with tophus BASIC METABOLIC PANEL Routine 07/09/2024 3:00 PM PLASTER DIE MAKER Idiopathic chronic gout of multiple sites with tophus ECG 12-LEAD Routine 05/28/2024 3:10 PM CDT Longstanding persistent atrial fibrillation (CMS/HCC) (HCC) DEVICE CHECK - IN OFFICE Routine 05/28/2024 2:53 PM CDT Nonischemic cardiomyopathy (CMS/HCC) (HCC) LIPID PANEL Routine 10/05/2023 from Last 3 Months or Most Recently Relevant to Health Maintenance Results * (ABNORMAL) eGFR (07/09/2024 3:00 PM PLASTER DIE MAKER) [facility] Signature eGFR 58(L) >=60 mL/min/1. 73 [...] last reviewed 2021. Blood 07/09/2024 3:00 PM PLASTER DIE MAKER 07/09/2024 9:12 PM PLASTER DIE MAKER Beatrice Almaraz MD LAB BLOOD ORDERABLES Final Result Performing Organization Address [facility] Co de Phone Number [facility] [address] [place] [address] * Uric acid (07/09/2024 3:00 PM PLASTER DIE MAKER) Uric acid 5.7 3.0 - 8.0 mg/dL Blood 07/09/2024 3:00 PM PLASTER DIE MAKER 07/09/2024 8:51 PM PLASTER DIE MAKER Beatrice Almaraz MD LAB BLOOD ORDERABLES Final Result Performing Organization Address [facility] Co de Phone Number [facility] [address] [place] [address] * (ABNORMAL) Basic metabolic panel (07/09/2024 3:00 PM PLASTER DIE MAKER) Sodium 140 135 - 145 mmol/L Potassium, pl 4.3 3.3 - 4.9 mmol/L [facility] Chloride 100 97 - 110 mmol/L [facility] CO2 27 22 - 32 mmol/L [facility] Anion gap 13 2 - 15 mmol/L [facility] BUN 21 6 - 25 mg/dL [facility] Creatinine 1.45(H) 0.80 - 1.30 mg/dL [facility] Glucose 103 70 - 199 mg/dL [facility] Comment: Interpretive Data Fasting glucose >/= [...] 2022. Calcium 9.6 8.5 - 10.3 mg/dL [facility] Blood 07/09/2024 3:00 PM PLASTER DIE MAKER 07/09/2024 8:51 PM PLASTER DIE MAKER Beatrice Almaraz MD LAB BLOOD ORDERABLES Final Result Performing Organization Address City/State/[facility] Co de Phone Number [facility] [address] [facility] Department [place] [address] * ECG 12 lead (05/28/2024 3:10 PM CDT) Result [facility] Anna Christianson NP ECG ORDERABLES Final Result * DEVICE CHECK - IN OFFICE (05/28/2024 2:53 PM CDT) Anatomical Region Laterality Modality Other Narrative 06/02/2024 3:53 PM PLASTER DIE MAKER Table formatting from the original result was [...] to KSENIA Episodes last 90 days/Comments: AF Stryker 100% 91 stored ventricular events episodes classified [...] Maintenance Insurance BLUE ACCESS CHOICE [place] [employer] [facility] CHOICE PLUS [facility] HMO/PPO Address: [address] [address] [place] [address] [facility] BLUE [employer] CHOICE [place] Advance Directives For more information, please contact: [phone] * Full Code (Latest Code Status on File) Date Activated Date Inactivated Comments 03/07/2024 3:23 PM 03/08/2024 12:57 AM Care Teams Blueprint Tracer Relationship Specialty Start Date End Date Danilo Kemp DO [address] [place] [address] PCP - General Family Medicine 06/18/20 Onel Alvarez MD [address] [address] Batcher Operator Cardiology 05/03/23
--- OUTSIDE RECORDS SUMMARY | 2024-08-27 12:50 | XMS_ITS | Referral Summary ---
Author Organization [facility] Address [address] [place] [address] Care Team Providers Care Access Analyst Name Role Phone Danilo Kemp Primary Care Provide r Onel Alvarez MD Unavailable [phone] Encounters Date Type Department Care Team Description 07/11/2024 9:15 AM CLINICAL OPERATIONS MANAGER Office Visit [facility] Sleep Medicine at [address] [place] [phone] Halle Jackson MD Obstructive sleep apnea (Primary Dx); Hypersomnia; Obesity, unspecified class, unspecified obesity type, unspecified whether serious comorbidity present 07/10/2024 Telephone [facility] Rheumatology [address] [place] [address] Medicine 5th [place] [address] [place] [address] Estela Frye RMA Test Results (Labs) 07/09/2024 8:20 PM CLINICAL OPERATIONS MANAGER - 07/09/2024 11:59 PM CLINICAL OPERATIONS MANAGER Hospital Encounter [facility] [address] [place] [address] Idiopathic chronic gout of multiple sites with tophus Discharge Disposition: Discharge to home or self care 07/09/2024 3:40 PM CLINICAL OPERATIONS MANAGER Lab [facility] Infectious Diseases [address] [place] [address] [address] [place] [address] 07/09/2024 3:00 PM CLINICAL OPERATIONS MANAGER Office Visit [facility] Rheumatology [address] [place] [address] [address] [place] [address] Beatrice Almaraz MD Idiopathic chronic gout of multiple sites with tophus (Primary Dx); Arthralgia of both hands 06/02/2024 1:00 PM CLINICAL OPERATIONS MANAGER Office Visit [facility] Cardiology [address] [facility] [address] [place] [address] Onel Alvarez MD Chronic HFrEF (heart failure with reduced ejection fraction) (CMS/HCC) (HCC) (Primary Dx); Longstanding persistent atrial fibrillation (CMS/HCC) (HCC); Cardiomyopathy, unspecified type (HCC) 05/28/2024 3:15 PM CDT [facility] [address] [place] [phone] Anna Christianson NP Longstanding persistent atrial fibrillation (CMS/HCC) (HCC) (Primary Dx); Automatic implantable cardiac defibrillator in situ; Anticoagulation management encounter 05/28/2024 3:00 PM CDT Ancillary Procedure [facility] [address] [place] [phone] Automatic implantable cardiac defibrillator in situ [...] 06/03/2024 Assessment & Plan (06/03/2024 4:15 PM CLINICAL OPERATIONS MANAGER): - remains compliant on apixaban -denies any issues with bruising or bleeding -recommend continued therapy for thromboprophylaxis Automatic implantable cardiac defibrillator in s itu 06/03/2024 Assessment & Plan (06/03/2024 4:16 PM CLINICAL OPERATIONS MANAGER): - status post dual-chamber ICD placement with [...] (11/02/2016): At risk for amiodarone toxicity with mcc use Obesity due to excess calories with [...] shared decision-making and concepts found within the [employer] ICD CardioSmart Decision Aid. [...] HFrEF (heart failure with reduced ejection fraction) ([facility]) 07/21/2015 Overview (11/02/2016): Chronic systolic heart failure Obstructive sleep apnea syndrome 07/21/2015 Overview (11/02/2016): YUDY on CPAP Longstanding persistent atrial fibrillation ([facility]) 07/21/2015 Overview (11/02/2016): Persistent atrial fibrillation Assessment & Plan (06/03/2024 4:15 PM CLINICAL OPERATIONS MANAGER): - minimally symptomatic persistent atrial fibrillation with [...] now will continue with rate control approach. [id number] = 2 (htn, CHF) --Continue apixaban 5 mg BID --Continue metoprolol XL 50 mg daily High risk drug monitoring status 04/15/2014 Overview (11/02/2016): Chronic anticoagulation Atrial fibrillation ([facility]) 02/04/2014 Overview (11/02/2016): Atrial fibrillation Hypertension 02/04/2014 Overview (11/02/2016): HTN (hypertension) Shortness of breath 02/04/2014 Overview (11/02/2016): Dyspnea Resolved Problems Problem Noted Date Diagnosed Date Resolved Date Paroxysmal atrial fibrillation ([facility]) 09/17/2015 02/12/2024 Overview (11/02/2016): Paroxysmal [...] on file Legal Sex Male 9:29 PM CLINICAL OPERATIONS MANAGER Gender Identity Male 02/11/2024 6:45 PM CDT Sexual Orientation Not on file Occupation Industry Job Start Date Job End Date Not on file Not on file Not on file Not on file Last Filed Vital Signs Vital Sign Reading Time Taken Comments Blood Pressure 104/71 07/11/2024 9:08 AM CLINICAL OPERATIONS MANAGER Pulse 67 07/11/2024 9:08 AM CLINICAL OPERATIONS MANAGER Temperature 36.1 ??C (97 ??F) 07/09/2024 2:48 PM CLINICAL OPERATIONS MANAGER Respiratory Rate 18 11/02/2023 10:0 5 AM CDT Oxygen Saturation 95% 07/11/2024 9:08 AM CLINICAL OPERATIONS MANAGER Inhaled Oxygen Concentration - - Weight 138.3 kg (304 lb 12.8 oz) 07/11/2024 9:08 AM CLINICAL OPERATIONS MANAGER Height 190.5 cm (6' 3 ) 07/11/2024 9:08 AM CLINICAL OPERATIONS MANAGER Body Mass Index 38.1 07/11/2024 9:08 AM CLINICAL OPERATIONS MANAGER Plan of Treatment Not on file Medical Devices Implanted Type Area Music Journalist Device Identifier Shelf Expiration Date Model / Serial / Lot [employer] Defib Cardiac [id number] [place] Implantable 2 Chamber [id number] - [id number] - [id number] Implanted:Qty: 1 on 03/07/2024 by Edwin Minaya III, MD at [facility] ICD [employer] [id number] 04/28/2024 C [id number] / [id number] / [employer] Durata 6.8fr 65cm True Bipolar Active Fixation Extendable 1 Coil 7122q/65 - [id number] - [id number] Implanted:Qty: 1 on 03/07/2024 by Edwin Minaya III, MD at [facility] Lead [employer] [id number] 10/27/2026 7122Q/65 / [id number] / [employer] Active Fixation Steroid Eluting Latex Free Sterile Right Atrium Ventricle Ultipace 52cm [id number] - [id number] - [id number] Implanted:Qty: 1 on 03/07/2024 by Edwin Minaya III, MD at [facility] Lead [employer] [id number] 08/29/2026 L [id number] / [id number] / Procedures Procedure Name Priority Date/Time Associated Diagnosis Comments EGFR Routine 07/09/2024 3:00 PM CLINICAL OPERATIONS MANAGER Idiopathic chronic gout of multiple sites with tophus URIC ACID Routine 07/09/2024 3:00 PM CLINICAL OPERATIONS MANAGER Idiopathic chronic gout of multiple sites with tophus BASIC METABOLIC PANEL Routine 07/09/2024 3:00 PM CLINICAL OPERATIONS MANAGER Idiopathic chronic gout of multiple sites with tophus ECG 12-LEAD Routine 05/28/2024 3:10 PM CDT Longstanding persistent atrial fibrillation (CMS/HCC) (HCC) DEVICE CHECK - IN OFFICE Routine 05/28/2024 2:53 PM CDT Nonischemic cardiomyopathy (CMS/HCC) (HCC) LIPID PANEL Routine 10/05/2023 from Last 3 Months or Most Recently Relevant to Health Maintenance Results * (ABNORMAL) eGFR (07/09/2024 3:00 PM CLINICAL OPERATIONS MANAGER) [facility] eGFR 58(L) >=60 mL/min/1. 73 m2 Comment: [...] last reviewed 2021. Blood 07/09/2024 3:00 PM CLINICAL OPERATIONS MANAGER 07/09/2024 9:12 PM CLINICAL OPERATIONS MANAGER Beatrice Almaraz MD LAB BLOOD ORDERABLES Final Result Performing Organization Address [facility] Co de Phone Number DIONISIO [address] [address] [facility] [place] [address] * Uric acid (07/09/2024 3:00 PM CLINICAL OPERATIONS MANAGER) Uric acid 5.7 3.0 - 8.0 mg/dL Blood 07/09/2024 3:00 PM CLINICAL OPERATIONS MANAGER 07/09/2024 8:51 PM CLINICAL OPERATIONS MANAGER Beatrice Almaraz MD LAB BLOOD ORDERABLES Final Result Performing Organization Address City/[facility]/[place] [address] [address] [facility] [place] [address] * (ABNORMAL) Basic metabolic panel (07/09/2024 3:00 PM CLINICAL OPERATIONS MANAGER) Sodium 140 135 - 145 mmol/L Potassium, pl 4.3 3.3 - 4.9 mmol/L [facility] Chloride 100 97 - 110 mmol/L [facility] CO2 27 22 - 32 mmol/L [facility] Anion gap 13 2 - 15 mmol/L [facility] BUN 21 6 - 25 mg/dL [facility] Creatinine 1.45(H) 0.80 - 1.30 mg/dL [facility] Glucose 103 70 - 199 mg/dL [facility] Comment: Interpretive Data Fasting glucose [...] 2022. Calcium 9.6 8.5 - 10.3 mg/dL [facility] Blood 07/09/2024 3:00 PM CLINICAL OPERATIONS MANAGER 07/09/2024 8:51 PM CLINICAL OPERATIONS MANAGER Beatrice Almaraz MD LAB BLOOD ORDERABLES Final Result D[facility] [address] [facility] Department [place] [address] * ECG 12 lead (05/28/2024 3:10 PM CDT) Anna Christianson NP ECG ORDERABLES Final Result * DEVICE CHECK - IN OFFICE (05/28/2024 2:53 PM CDT) Anatomical Region Laterality Modality Other Narrative 06/02/2024 3:53 PM CLINICAL OPERATIONS MANAGER Table formatting from the original result was [...] to KSENIA Episodes last 90 days/Comments: AF [place] 100% 91 stored ventricular events episodes classified [...] Most Recently Relevant to Health Maintenance Insurance [place] [employer] [place] [facility] PLUS [facility] [place] [employer] [facility] [employer] [place] Advance Directives For more information, please contact: [phone] * Full Code (Latest Code Status on File) Date Activated Date Inactivated Comments 03/07/2024 3:23 PM 03/08/2024 12:57 AM Care Teams Access Analyst Relationship Specialty Start Date End Date Danilo Kemp DO [facility] [place] [address] PCP - General Family Medicine 06/18/20 Onel Alvarez MD [address] [facility] [address] [place] [address] Signal Manager Cardiology 05/03/23
--- OUTSIDE RECORDS SUMMARY | 2024-08-27 12:50 | XMS_ITS | Referral Summary ---
Author Organization [facility] Address [address] [facility] [place] [address] Care Team Providers Care Skin Therapist Name Role Phone Georgia Garcia MD Primary Care Provider Unavailabl e Source Comments [facility],non-owned Affiliates and Associated Physician Practices is amultiple site organization consisting of ambulatory clinics and hospital sitesin [place], [place], [place] and [place]. This disclosure is being madepursuant to the Care Everywhere program and may not contain all information available regarding this patient. Last updated 18.[facility] [employer] Social History Tobacco Use Types Packs/Day Years Used Date Smoking Tobacco: Never Assessed Sex and Gender Information Value Date Recorded Sex Assigned at Not on file Gender Identity Not on file Sexual Orientation Not on file Plan of Treatment Not on file Care Teams Skin Therapist Relationship Specialty Start Date End Date Georgia Garcia MD RETIRED PCP - General 02/15/10
--- OUTSIDE RECORDS SUMMARY | 2024-08-27 12:50 | XMS_ITS | Encounter Summary ---
Author Organization [facility] Address [facility] [place], [place] [address] [place] [address] Care Team Providers Care Supervisor Ditching Name Role Phone Danilo Kemp DO Primary Care Provider + Reason for Visit * Reason Onset Date Comments Information 08/27/2024 Encounter Details Date Type Department Care Team (Late st Contact Info) Description 08/27/2024 Telephone [facility] Family & Internal Medicine [place] [address] [place] [phone] Danilo Kemp DO [facility] [place] [address] Information Social History Tobacco Use [...] Sex Assigned at Male 08/22/2024 2:21 PM COAL CHEMIST Legal Sex Male 4:03 PM CDT Gender [...] and will take him to the ER. CHEMIST documented in this encounter Plan of Treatment Upcoming Encounters Date Type Department Care Team (Late st Contact Info) Description 09/18/2024 1:40 PM COAL CHEMIST Office Visit [facility] Multispecialty Care - [facility] [address] [facility] [place] [phone] Crystal Diamond, BILL CHECKER [address] [facility] [address] [place] [address] Harjit Lewis PA-C [address] [facility] [address] [place] [address] documented as of this encounter Visit Diagnoses Not on filedocumented in this encounter Additional Health Concerns Infection Onset Date Last Indicated Resolved Time Influenza - Seasonal 08/22/2024 08/22/2024 Assessment Noted Time PHQ-9 Depression Total Score: 0 04/23/20 20 11:17 AM CDT documented as of this encounter Care Teams Supervisor Ditching Relationship Specialty Start Date End Date Danilo Kemp DO [address] [place] [address] PCP - General FAMILY PRACTICE 03/25/19 documented as of this encounter
--- OUTSIDE RECORDS SUMMARY | 2024-08-27 12:50 | XMS_ITS | Encounter Summary ---
Author Organization [facility] Address [address] [place] [address]. [place], [place] [address] [place] [address] Care Team Providers Care Traffic Manager Name Role Phone Danilo Kemp DO Primary Care Provider + Encounter Details Date Type Department Care Team (Late st Contact Info) Description 10/20/2019 Pre-Procedure Call [facility] [address] [place] [address] Renae Malone, RN Social History [...] Sex Assigned at Male 08/22/2024 2:21 PM SENIOR PACKAGING ENGINEER Legal Sex Male 4:03 PM CDT Gender Identity Male 05/18/2022 11:46 AM CDT Sexual Orientation Not on file Occupation Industry Job Start Date Job End Date Not on file Not on file Not on file Not on file documented as of this encounter Plan of Treatment Upcoming Encounters Date Type Department Care Team (Late st Contact Info) Description 09/18/2024 1:40 PM SENIOR PACKAGING ENGINEER Office Visit [facility] Multispecialty Care - [address] [place] [address] Crystal Diamond, CHANNEL ROUGHER [address] [facility] [address] [place] [address] Harjit Lewis, PA-C [address] [facility] [place] [address] documented as of this encounter Visit Diagnoses Not on filedocumented in this encounter Additional Health Concerns Infection Onset Date Last Indicated Resolved Time COVID-19 Rule Out 05/25/2020 05/25/2020 05/26/2020 7:46 PM CDT COVID-19 Rule Out 06/02/2020 06/02/2020 06/04/2020 4:31 AM SENIOR PACKAGING ENGINEER COVID-19 Rule Out 09/07/2022 09/07/2022 09/07/2022 4:13 PM SENIOR PACKAGING ENGINEER COVID-19 Rule Out 08/22/2024 08/22/2024 08/22/2024 2:51 PM SENIOR PACKAGING ENGINEER Influenza - Seasonal 08/22/2024 08/22/2024 Assessment Noted Time PHQ-9 Depression Total Score: 0 03/25/20 19 8:17 AM CDT documented as of this encounter Care Teams Traffic Manager Relationship Specialty Start Date End Date Danilo Kemp DO [address] [place] [address] PCP - General FAMILY PRACTICE 03/25/19 documented as of this encounter
--- OUTSIDE RECORDS SUMMARY | 2024-08-27 12:50 | XMS_ITS | Encounter Summary ---
Author Organization [facility] Address [facility] [facility] [place] [address] [place] [address] Care Team Providers Care English Language Arts Teacher Name Role Phone Danilo Kemp DO Primary Care Provider + Encounter Details Date Type Department Care Team (Late st Contact Info) Description 05/24/2020 Prep for Procedure [facility] Day [facility] [address] [place] [address] Ronda Rivas MD [address] [id number] Social History Tobacco Use Types Packs/Day Years [...] Sex Assigned at Male 08/22/2024 2:21 PM ORACLE FUSION [place] ARCHITECT Legal Sex Male 4:03 PM CDT Gender [...] st Contact Info) Description 09/18/2024 1:40 PM ORACLE FUSION [place]LE[place] ARCHITECT Office Visit [facility] Multispecialty Care - [facility] [address] [place] [address] Crystla Diamond NP [address] [facility] [address] [place] [address] Harjit Lewis PA-C [address] [place] [address] documented as of this encounter Results * PRE-SURGICAL/PRE-PROCEDURE CORONAVIRUS (COVID 19) (06/02/2020 2:35 PM ORACLE FUSION [place] ARCHITECT) CORONAVIRUS SARS COV 2 PCR (RESP) NOT DETECTED NOT DETECTED 06/04/2020 4:31 AM ORACLE FUSION [place] ARCHITECT [facility] Comment: A Not Detected (negative) test result [...] providers and patients using the following websites: https://www.LAST MINUTE NETWORK.Xueersi/home/Covid-19/HCP/QuestIVD/fact- sheet.html https://www.[employer] MIN[employer]WORK.Xueersi/home/Covid-19/Patients/ QuestIVD/fact-sheet.html This test has been authorized by the FDA under an Emergency Use Authorization (EUA) for use by authorized laboratories. Due to the current public health emergency, [facility] is receiving a high volume of samples [...] about COVID-19 can be found at the [facility] website: www.HealthPocket/Covid19. Test performed at [facility] [place] [address] [place], [place] ??[address] Director: EREN NINA DO,MPH FIRST TEST NO 06/02/2020 2:28 PM [facility] EMPLOYED IN HEALTHCARE NO 06/02/2020 2:28 PM [facility] SYMPTOMATIC DEFINED BY CDC NO 06/02/2020 2:28 PM [facility] DATE OF SYMPTOM ONSET UNSATISFACTORY 06/02/2020 2:57 PM [facility] HOSPITALIZATION STATUS NO 06/02/2020 2:28 PM [facility] PATIENT IN ICU NO 06/02/2020 2:28 PM [facility] RESIDENT OF [facility] NO 06/02/2020 2:28 PM [facility] NO 06/02/2020 2:57 PM [facility] PATIENT'S RACE OTHER 06/02/2020 2:28 PM [facility] ETHNICITY 06/02/2020 2:28 PM [facility] SOURCE (QST) NASOPHARYNGEAL SWAB 06/02/2020 2:28 PM ORACLE FUSION [place] ARCHITECT [facility] NASOPHARYNGEAL SWAB / Unknown 06/02/2020 2:35 PM ORACLE FUSION [place] ARCHITECT Ronda Rivas MD MICROBIOLOGY - GENERAL ORDERABLE S Final Result [facility] [address] [place] [address], [employer] [facility] [address] [place] [address], * PRE-SURGICAL/PRE-PROCEDURE CORONAVIRUS (COVID 19) (05/25/2020 2:57 PM CDT) CORONAVIRUS SARS COV 2 PCR (RESP) NOT DETECTED NOT DETECTED 05/26/2020 7:46 PM CDT [facility] Comment: A Not Detected (negative) test result [...] providers and patients using the following websites: https://www.LAST MINUTE NETWORK.Xueersi/home/Covid-19/HCP/QuestIVD/fact- sheet.html https://www.[employer] MIN[employer]WORK.Xueersi/home/Covid-19/Patients/ QuestIVD/fact-sheet.html This test has been authorized by the FDA under an Emergency Use Authorization (EUA) for use by authorized laboratories. Due to the current public health emergency, [facility] is receiving a high volume of samples [...] about COVID-19 can be found at the [facility] website: www.Tribotek.Xueersi/Covid19. Test performed at [facility] [place] [address] [place], [place] ??[address] Director: EREN NINA DO,MPH FIRST TEST UNKNOWN 05/25/2020 2:31 PM CDT [facility] EMPLOYED IN HEALTHCARE NO 05/25/2020 2:31 PM CDT [facility] SYMPTOMATIC DEFINED BY CDC NO 05/25/2020 2:31 PM CDT [facility] HOSPITALIZATION STATUS NO 05/25/2020 2:31 PM CDT [facility] PATIENT IN ICU NO 05/25/2020 2:31 PM CDT [facility] RESIDENT OF [facility] NO 05/25/2020 2:31 PM CDT [facility] NO 05/25/2020 3:00 PM CDT [facility] PATIENT'S RACE OTHER 05/25/2020 2:31 PM CDT [facility] ETHNICITY 05/25/2020 2:31 PM CDT [facility] SOURCE (QST) NASOPHARYNGEAL SWAB 05/25/2020 2:31 PM CDT [facility] NASOPHARYNGEAL SWAB / Unknown 05/25/2020 2:57 PM CDT Ronda Rivas MD MICROBIOLOGY - GENERAL ORDERABLE S Final Result [facility] [address] [place] [address], [facility] [address] [place] [address], [place] * ECG 12-Lead (05/25/2020 2:49 PM CDT) 05/25/2020 2:49 PM CDT Narrative [facility] - 05/25/2020 4:09 PM CDT ?[facility] ? Test Date: ?2020-05-25 Pat Name: ? EPENESA EPENESA ?Department: ? Room: ? Gender: ? Male ? Compound Finisher: ?? : ?1970 ? Requested By: RONDA RIVAS Order Number: [id number] ? Reading MD: ?? Alo Stoner ? Measurements Intervals ?Bussey ? Rate: ? 113 ?P: ? VT: ? 0 ?QRS: ?52 QRSD: ? 102 ?T: ?-24 QT: ? 334 ? QTc: ?460 ? Interpretive Statements ATRIAL FIBRILLATION WITH RAPID VENTRICULAR RESPONSE NONSPECIFIC T-WAVE ABNORMALITY No previous ECG available for comparison Procedure Note Alo Stoner MD - 05/25/2020 [facility] Test Date: 2020-05-25 Pat Name: LÁZARO SESAY Department: Room: Gender: Male Compound Finisher: : 1970 Requested By: RONDA RIVAS Order Number: [id number] Adenike MD: Alo Stoner Measurements Intervals Bussey Rate: 113 P: VT: 0 QRS: 52 QRSD: 102 T: -24 QT: 334 QTc: 460 Interpretive Statements ATRIAL FIBRILLATION WITH RAPID VENTRICULAR RESPONSE NONSPECIFIC T-WAVE ABNORMALITY No previous ECG available for comparison us Ronda Rivas MD ECG ORDERABLES Final Result [facility] documented in this encounter Visit Diagnoses Diagnosis Preop testing- Primary Preoperative examination, unspecified Preop testing Preoperative examination, unspecified documented in this encounter Additional Health Concerns Infection Onset Date Last Indicated Resolved Time COVID-19 Rule Out 05/25/2020 05/25/2020 05/26/2020 7:46 PM CDT COVID-19 Rule Out 06/02/2020 06/02/2020 06/04/2020 4:31 AM ORACLE FUSION [place] ARCHITECT COVID-19 Rule Out 09/07/2022 09/07/2022 09/07/2022 4:13 PM ORACLE FUSION [place] ARCHITECT COVID-19 Rule Out 08/22/2024 08/22/2024 08/22/2024 2:51 PM ORACLE FUSION [place]LE[place] ARCHITECT Influenza - Seasonal 08/22/2024 08/22/2024 Assessment Noted Time PHQ-9 Depression Total Score: 0 04/23/20 11:17 AM CDT documented as of this encounter Care Teams English Language Arts Teacher Relationship Specialty Start Date End Date Danilo Kemp DO [address] [place] [address] PCP - General FAMILY PRACTICE 03/25/19 documented as of this encounter
--- OUTSIDE RECORDS SUMMARY | 2024-08-27 12:50 | XMS_ITS | Encounter Summary ---
Author Organization [facility] Address [address] [place] [id number] Care Team Providers Care Loader [employer]icon[employer] Dies Name Role Phone Callum Nguyen MD Primary Care Provider [phone] Adelina Escalante MD Primary Care Provider [phone] Danilo Kemp DO Primary Care Provide r Onel Alvarez MD Unavailable [phone] Encounter Details Date Type Department Care Team (Late st Contact Info) Description 11/29/2016 Orders Only [facility] ProviderSybil MD [address] [place] [id number] Social History Tobacco Use Types Packs/Day Years Used Date Smoking Tobacco: Never Alcohol Use Standard Drinks/Week Comments No 0 (1 standard drink = 0.6 oz pur e alcohol) Sex and Gender Information Value Date Recorded Sex Assigned at Not on file 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 Historical Provider [facility] Final Result documented in this encounter Visit Diagnoses Not on filedocumented in this encounter Care Teams [employer] Dies Relationship Specialty Start Date End Date Callum Nguyen MD [address] [place] [address] PCP - General 10/27/16 09/26/18 Adelina Escalante MD [address] [place] [address] PCP - General Family Practice 09/27/18 06/17/20 Danilo Kemp DO [address] [place] [address] [id number] PCP - General Family Medicine 06/18/20 Onel Alvarez MD [address] [address] Housekeeping Supervisor Cardiology 05/03/23 documented as of this encounter
--- OUTSIDE RECORDS SUMMARY | 2024-08-27 12:50 | XMS_ITS | Patient Health Summary ---
Author Organization [facility] Address [address] [address] Care Team Providers Care Computer Network And Systems Engineer Name Role Phone Georgia Garcia MD Primary Care Provider Unavailabl e Note from [facility],non-owned Affiliates and Associated Physician Practices is amultiple site organization consisting of ambulatory clinics and hospital sitesin [place], [place], [place] and [place]. This disclosure is being madepursuant to the Care Everywhere program and may not contain all information available regarding this patient. Last updated 18.[facility] [employer] Social History Tobacco Use Types Packs/Day Years [...] abnormality. Georgia Garcia MD [facility] Care Teams Computer Network And Systems Engineer Relationship Specialty Start Date End Date Georgia Garcia MD RETIRED PCP - General 02/15/10
--- OUTSIDE RECORDS SUMMARY | 2024-08-27 12:50 | XMS_ITS | Clinical Summary ---
Author Organization [facility] Address [address] [place] [address] Care Team Providers Care Disability Insurance Claim Examiner Name Role Phone Georgia Garcia MD Primary Care Provider Unavailabl e Source Comments [facility],non-owned Affiliates and Associated Physician Practices is amultiple site organization consisting of ambulatory clinics and hospital sitesin [place], [place], [place] and [place]. This disclosure is being madepursuant to the Care Everywhere program and may not contain all information available regarding this patient. Last updated 18.[facility] Social History Tobacco Use Types Packs/Day Years [...] age to complete this topic Care Teams Disability Insurance Claim Examiner Relationship Specialty Start Date End Date Georgia Garcia MD RETIRED PCP - General 02/15/10
[2024-08-27 12:58] VITALS: BP 139/90; PULSE 78; RESP 20; TEMP 36.9; O2SAT 95
== END 2024-08-27 13:13 | disposition home or self-care (01) ==
PROVIDERS: Emergency Provider Emergency Medicine; PCP Student in an Organized Health Care Education/Training Program
DX: J18.9 Pneumonia, unspecified organism (principal); J10.1 Influenza due to other identified influenza virus with other respiratory manifestations; Z20.822 Contact with and (suspected) exposure to COVID-19; I10 Essential (primary) hypertension; I48.0 Paroxysmal atrial fibrillation; I42.9 Cardiomyopathy, unspecified; E11.9 Type 2 diabetes mellitus without complications; E66.9 Obesity, unspecified; Z68.37 Body mass index [BMI] 37.0-37.9, adult; M10.9 Gout, unspecified; M05.79 Rheumatoid arthritis with rheumatoid factor of multiple sites without organ or systems involvement; M19.90 Unspecified osteoarthritis, unspecified site; G47.30 Sleep apnea, unspecified; Z79.899 Other long term (current) drug therapy
CPT/HCPCS: 71046; 87637; 94640; 99283; A9270